=== PATIENT | female | born 1950 | race Hispanic/Latino ===

== ENCOUNTER → 2018-08-01 | Outpatient (CLI) | payer OTHER | END | disposition home or self-care (01) | LOC: RAH 12:22 | PROVIDERS: ATTEND Internal Medicine | DX: R91.1 Solitary pulmonary nodule (principal); K76.0 Fatty (change of) liver, not elsewhere classified | CPT/HCPCS: 71260 ==

== ENCOUNTER → 2019-02-21 | Outpatient (CLI) | payer OTHER ==
[~2019-02-21] MED LIST: IOHEXOL-350 50ML VIAL IV ONE
== END | disposition home or self-care (01) ==
LOC: RAH 08:35
PROVIDERS: ATTEND Internal Medicine
DX: R91.1 Solitary pulmonary nodule (principal); J84.10 Pulmonary fibrosis, unspecified; K80.20 Calculus of gallbladder without cholecystitis without obstruction; M47.815 Spondylosis without myelopathy or radiculopathy, thoracolumbar region
CPT/HCPCS: 71260; Q9967

== ENCOUNTER → 2020-08-09 | Outpatient (CLI) | payer OTHER | END | disposition home or self-care (01) | LOC: RAH 07:31 | PROVIDERS: ATTEND Internal Medicine | DX: K76.0 Fatty (change of) liver, not elsewhere classified (principal) | CPT/HCPCS: 76700 ==

== ENCOUNTER → 2024-10-18 | Outpatient (CLI) | payer OTHER ==
--- NOTE | 2024-10-23 08:49 | HMCSR ---
APPROVED REPORT EXAM: Two-dimensional and M-mode echocardiogram with Doppler and color Doppler. INDICATION ICD: R01.1 Cardiac murmur, unspecified 2D Dimensions RVDd2.5 cmLVEF(%)68.5 (>50%)LVED Vol(simp.)65.0 mL IVSd1.2 (0.7-1.1cm)FS(%)38 %LVES Vol(simp.)22.0 mL LVDd3.6 (3.8-5.6cm)Ao Root(2D)2.7 (2.0-3.7cm)LVEF(%, simp.)66 % PWd1.1 (0.7-1.1cm)LVOT diam1.9 (1.8-2.4cm)LA ESV INDEX (BP)28.88 mL/m2 LVDs2.2 (2.5-4.0cm)IVC diam1.5 cm Aortic Valve AoV Vmax2.8 m/Naomi Peak GR31.0 mmHgLVOT Vmax1.0 m/s AoV VTI0.6 mAo Mean GR16.2 mmHgLVOT VTI0.25 m MARIO (VMAX)1.1 cm2AVA (VTI) 1.1 cm2 Mitral Valve MV E Gxoe131.2 cm/sDECEL Sgyr467 msMV Peak GR13 mmHg MV A Krob068.6 cm/sP 1/2 T86 msMV Mean GR6 mmHg E/A ratio0.8MVA (PHT)2.6 cm2MVA (VTI)1.6 cm2 MR Max PG87 mmHg TDI E/E' Bzqxkt08.1E/E' Nqsllpn68.4 Pulmonary Valve PV Vmax1.4 m/sPV VTI0.34 mPV Mean GR5 mmHg PV Peak GR7.9 mmHg Tricuspid Valve RAP (EST) 3 mmHg Left Ventricle Left ventricular cavity size is normal. There is mild septal wall increased thickness. LVEF is 65-70% . Grade 1 diastolic dysfunction Right Ventricle The right ventricle is normal size. The right ventricular systolic function is normal. Atria The left atrium size is normal. The right atrium size is normal. Aortic Valve Aortic valve is trileaflet. Aortic valve leaflets are sclerotic but open well. Trace aortic regurgita tion. There is no aortic valvular stenosis. Mitral Valve Mitral valve leaflets are mildly calcified. Mitral annular calcification is mild to moderate. Posteri or leaflet is restricted in movement. Mitral regurgitation is trace to mild. Mild mitral stenosis. Ca lculated mitral valve area is 1.6 cm2 with maximum pressure gradient of 13 mmHg and mean pressure gra dient of 6.4 mmHg. Tricuspid Valve The tricuspid valve leaflets appear normal. There is trace tricuspid regurgitation. Pulmonic Valve The pulmonic valve leaflets are thin and pliable; valve motion is normal. Great Vessels The aortic root is normal in size. The IVC is normal in size and collapses >50% with inspiration. Pericardium No pericardial effusion. Conclusion Left ventricular cavity size is normal. There is mild septal wall increased thickness. LVEF is 65-70%. Grade 1 diastolic dysfunction The right ventricle is normal size. The right ventricular systolic function is normal. The left atrium size is normal. The right atrium size is normal. Mitral regurgitation is trace to mild. Mitral valve leaflets are mildly calcified. Mitral annular calcification is mild to moderate. Posterior leaflet is restricted in movement. Mild mitral stenosis. Calculated mitral valve area is 1.6 cm2 with maximum pressure gradient of 13 mm Hg and mean pressure gradient of 6.4 mmHg. No pericardial effusion.
== END | disposition home or self-care (01) ==
LOC: SHCH 13:07
PROVIDERS: ATTEND Student in an Organized Health Care Education/Training Program
DX: I08.0 Rheumatic disorders of both mitral and aortic valves (principal); R01.1 Cardiac murmur, unspecified
CPT/HCPCS: 93306

== ENCOUNTER 2025-03-13 19:36 | Inpatient (IN) | payer OTHER ==
[~2025-03-13] VITALS: Ht 154.9 cm; Wt 74.8 kg
[~2025-03-13 19:36] MED LIST changes: +0.9%NACL 50ML IV SCH; -IOHEXOL-350 50ML VIAL IV ONE
--- NOTE | 2025-03-13 20:24 | EKG ---
[facility] Test Date: 2025-03-13 Test Time: 20:20:03 Pat Name: GAGE FERREIRA Department: [facility] Room: 303 Gender: F [employer] Installer: [id number] Requested By: EDELMIRA MCDONALD Order Number: [id number] Reading MD: Lux Neri Measurements Intervals Aubrey Rate: 97 P: 29 FL: 157 QRS: -11 QRSD: 80 T: -2 QT: 364 QTc: 462 Interpretive Statements Sinus rhythm Inferior infarct, old No previous ECG available for comparison Electronically Signed On 03-16-2025 00:00:40 CDT by Lux Neri Please click the below link to view image of tracing.
[2025-03-13 20:25] LABS: IMMATURE GRANULOCYTE ABSOLUTE 0.18 K/uL (0-1); NUCLEATED RED BLOOD CELLS 0.0 % (0.0-0.19); PLATELET COUNT (AUTO) 178 K/uL (130-400); RED BLOOD CELL COUNT(AUTO) 4.34 MIL/uL (4.00-5.50); RED CELL DISTRIBUTION WIDTH 13.2 % (11.0-15.5); WHITE BLOOD COUNT (AUTO) 19.1 K/uL (4.8-10.8)
[2025-03-13 20:39] LABS: CREATININE 1.1 mg/dL (0.5-1.0); GLOMERULAR FILTR. RATE CALC 52.0 mL/min (>90); GLUCOSE,RANDOM 212.0 mg/dL (70-105); SODIUM SERUM 130.0 mmol/L (136-145); UREA NITROGEN, BLOOD 29.0 mg/dL (7-18)
[2025-03-13] MEDS: 0.9%NACL 1000ML 1,000 ML IV ONE (20:46)
[2025-03-13] MEDS: FAMOTIDINE 20MG VIAL IV ONE (20:46)
[2025-03-13 20:48] LABS: ASPARTATE AMINOTRANSFERASE 22.0 U/L (10-37); CREATINE KINASE, TOTAL 62.0 U/L (21-232); TOTAL PROTEIN, SERUM 7.0 g/dL (6.0-8.3)
--- NOTE | 2025-03-13 21:25 | ERN ---
General Chief Complaint: Multiple Complaints Stated Complaint: NAUSEA. GBW, CHILLS Time Seen by MD: 19:47 Time Seen by Midlevel: 19:47 Source: patient History of Present Illness Initial Comments Patient is a 74-year-old female presenting to the emergency department for evaluation of increased generalized body weakness chills, and nausea. She also reports diffuse abdominal pain. According to family the patient was treated for urinary tract infection several weeks ago. She was seen at [facility] on March 10 and diagnosed with gallstones but ultimately discharged. She follow up with your PCP who referred her to GI but is pending an appointment. Allergies: Coded Allergies: No Known Allergies (Unverified Allergy, Unknown, 03/13/25) Past Medical History Past Medical History: Diabetes-Type II, High Cholesterol, Hypertension, Other Medical History Other: GALLSTONES Past Surgical History: ROS Dictation CONSTITUTIONAL: Negative except for HPI HEAD/FACE: Negative except for HPI EENT: Negative except for HPI RESPIRATORY: Negative except for HPI GASTROINTESTINAL/ABDOMINAL: Negative except for HPI GENITOURINARY: Negative except for HPI MUSCULOSKELETAL: Negative except for HPI INTEGUMENTARY: Negative except for HPI NEUROLOGICAL/PSYCH: Negative except for HPI HEMATOLOGIC/LYMPHATIC: Negative except for HPI All Systems Negative, Except as noted above. 13 point review of systems assessed and all negative except for above. Physical Exam Physical Exam Dictation Vital Signs reviewed General Appearance: Alert, oriented x 3, no acute distress, well developed, nourished. Head and Face: non-traumatic. Eyes: PERRL, pink conjunctivas, eyelid no trauma, anterior chamber with arcus senilis. Ears: Pinnas intact and no signs of trauma or erythema ear canals clear and no discharge TM no erythema Nose: No discharge, no bleeding. Oropharynx: Mouth normal, tongue pink, pharynx clear,no erythema, tonsils no exudates, no abscesses noted, mucous membrane moist Neck: Supple, non-tender, no thyromegaly, no masses, no JVD, no bruits Breast:Deferred Chest:No tenderness, no crepitus, no paradoxical movement, no retractions Lungs:Clear, well-ventilated, symmetric, no rales, no wheezing, no rhonchi, no stridor, good breath sounds bilaterally Heart: Regular rate, regular rhythm, no murmur, no gallops Vascular: no peripheral edema, Abdomen: Soft, positive bowel sounds, nondistended, no guarding, nontender, no rebound, no masses no hepatomegaly, no splenomegaly, no Chavarria's sign, no hernias. Rectal: Deferred Genital: Deferred Neurological: Normal speech, motor function intact, sensory function intact Musculoskeletal: Neck nontender, full range of motion, back nontender, full range of motion, Extremities: nontender, full range of motion Skin: Color pink, dry, no turgor, no rash, no lacerations, no abrasions, no contusions. Lymphatic: Deferred Results Laboratory and Microbiology Lab and Micro Result Laboratory Tests Test 03/13/25 20:16 White Blood Count 19.1 K/uL (4.8-10.8) H Red Blood Count 4.34 MIL/uL (4.00-5.50) Hemoglobin 12.5 g/dL (12.0-16.0) Hematocrit 36.3 % (36-48) Mean Corpuscular Volume 83.6 fL (79-99) Mean Corpuscular Hemoglobin 28.8 pg (27.0-33.0) Mean Corpuscular Hemoglobin Concent 34.4 g/dL (32.0-36.0) Red Cell Distribution Width 13.2 % (11.0-15.5) Platelet Count 178 K/uL (130-400) Mean Platelet Volume 11.0 fL (7.5-10.5) H Immature Granulocyte % (Auto) 0.9 % (0-1) Neutrophils (%) (Auto) 88.9 % (40.0-77.0) H Lymphocytes (%) (Auto) 2.6 % (21.0-51.0) L Monocytes (%) (Auto) 7.4 % (3.0-13.0) Eosinophils (%) (Auto) 0.0 % (0.0-8.0) Basophils (%) (Auto) 0.2 % (0.0-5.0) Neutrophils # (Auto) 17.0 K/uL (1.8-7.7) H Lymphocytes # (Auto) 0.5 K/uL (1.0-4.8) L Monocytes # (Auto) 1.4 K/uL (0.1-1.0) H Eosinophils # (Auto) 0.00 K/uL (0.00-0.70) Basophils # (Auto) 0.03 K/uL (0.00-0.20) Absolute Immature Granulocyte (auto 0.18 K/uL (0-1) Nucleated Red Blood Cells 0.0 % (0.0-0.19) White Cell Morphology Comment See comments Sodium Level 130 mmol/L (136-145) L Potassium Level 3.8 mmol/L (3.5-5.1) Chloride Level 97 mmol/L (101-111) L Carbon Dioxide Level 28 mmol/L (21-32) Blood Urea Nitrogen 29 mg/dL (7-18) H Creatinine 1.1 mg/dL (0.5-1.0) H Glomerular Filtration Rate Calc 52 mL/min (>90) Random Glucose 212 mg/dL (70-105) H Total Calcium 9.1 mg/dL (8.5-10.1) Total Bilirubin 1.6 mg/dL (0.2-1.0) H Direct Bilirubin 0.8 mg/dL (0.0-0.3) H Aspartate Amino Transf (AST/SGOT) 22 U/L (10-37) Alanine Aminotransferase (ALT/SGPT) 20 U/L (12-78) Alkaline Phosphatase 133 U/L (50-136) Total Creatine Kinase 62 U/L (21-232) Troponin I High Sensitivity 17 ng/L (4-50) Total Protein 7.0 g/dL (6.0-8.3) Albumin 2.5 g/dL (3.5-5.0) L Lipase 14 U/L (16-77) L Labs Reviewed?: Yes [facility] MDM: Differential diagnosis: Acute cholecystitis, cholelithiasis, small bowel obstruction. Rationale: Tests considered and ordered secondary to shared decision making include: Previous outside records reviewed: Old ER visits. Risk of complication and/or morbidity or mortality of patient management: None Medications-Per medication reconciliation Need for hospitalization: Patient does not meet criteria for hospitalization. Need for emergency major/minor surgery: No There are no social concerns with this patient. Prescription drug management Prescriptions will include symptomatic care Patient's prior external medical records from other ER visits were reviewed by me as indicated. Prior testing and results from previous visits were reviewed. Prior tests were taken into account with medical decision making and resource utilization, independent historian/historians were used to obtain complete medical history. I independently interpreted the test that were performed, results were reviewed by me and considered findings on radiology if ordered. Medical management and examination interpretation discussions were had by me with other qualified healthcare professionals as indicated for the patient's care.. Discussed and reviewed the diagnostic study results with Kacie CORTEZ who agrees for hospitalization/ ED Course Orders Procedure Category Date Status Time 12 Lead Ekg Tracing- EKG 03/13/25 Complete Technical 20:16 Cbc With Differential LAB 03/13/25 Complete 20:16 Basic Metabolic Panel LAB 03/13/25 Complete 20:16 Creatine Kinase, Total LAB 03/13/25 Complete 20:16 Hepatic Function Panel LAB 03/13/25 Complete 20:16 Lipase LAB 03/13/25 Complete 20:16 Urinalysis Profile LAB 03/13/25 Logged 20:16 Troponin I High LAB 03/13/25 Complete Sensitivity 20:16 Chest 1vw RAD 03/13/25 Resulted 20:16 Ondansetron 4mg Inj PHA 03/13/25 Complete (Zofran 4mg Inj) 20:30 Famotidine 20mg Vial PHA 03/13/25 Complete (Pepcid 20mg Vial) 20:30 0.9%Nacl 1000ml (Ns PHA 03/13/25 Complete 1000ml) 20:30 Ct Abdomen/Pelvis CT 03/13/25 Resulted W/Contrast 21:03 Zosyn 3.375gm+Ns 50ml PHA 03/13/25 Complete (Zosyn 3.375gm+Ns 21:30 Blood Cult ANGELA 03/13/25 In Process 21:26 Iohexol (Omnipaque) PHA 03/13/25 Complete 21:52 Current Medications Medications (Trade) Dose Ordered Sig/Lucretia Route PRN Reason Start Time Stop Time Status Last Admin Dose Admin Famotidine (Pepcid 20mg Vial) 20 mg ONCE ONCE IV 03/13/25 20:30 03/13/25 20:31 DC 03/13/25 20:46 Iohexol (Omnipaque) 75 ml STK-MED ONCE IV 03/13/25 21:52 03/13/25 21:53 DC Ondansetron HCl (zoFRAN 4MG INJ) 4 mg ONCE ONCE IVP 03/13/25 20:30 03/13/25 20:31 DC 03/13/25 20:46 Piperacillin Sod/ Tazobactam Sod (Zosyn 3.375gm+NS 50ml) 3.375 gm ONCE ONCE IV 03/13/25 21:30 03/13/25 21:31 DC 03/13/25 22:22 Sodium Chloride 1,000 ml @ 0 mls/hr ONCE ONCE IV 03/13/25 20:30 03/13/25 20:31 DC 03/13/25 20:46 Vital Signs Date Time Temp Pulse Resp B/P (MAP) Pulse Ox O2 Delivery O2 Flow Rate FiO2 03/13/25 22:49 104 15 130/47 98 Room Air* 0 21 03/13/25 20:00 95 15 114/46 98 Room Air* 0 21 03/13/25 19:38 97.3 94 20 108/47 97 Room Air DX & DISP Disposition: Inpatient Departure Impression: Primary Impression: Acute cholecystitis Condition: Stable Referrals: RUBI MONIQUE M.D. (PCP) EDELMIRA MCDONALD Mar 13, 2025 21:25 LYDIA MARQUEZ Mar 13, 2025 23:35
[2025-03-13] MEDS ORDERED: IOHEXOL-350 75 ML VIAL IV ONE (21:52)
--- NOTE | 2025-03-13 22:07 | HMCIMG ---
EXAM: CR Chest, 1 View. CLINICAL HISTORY: cp COMPARISON: None provided. FINDINGS: LUNGS: The lungs show no infiltrate or other acute finding. PLEURAL SPACES: No evidence of pleural effusion or pneumothorax. MEDIASTINUM: The cardiomediastinal silhouette is within normal limits. BONES: No aggressive appearing osseous lesion seen. IMPRESSION: No acute cardiopulmonary pathology is evident. /[place]
[2025-03-13] MEDS: ZOSYN 3.375GM +NS 50ML IV ONE (22:22)
--- NOTE | 2025-03-13 23:07 | HMCIMG ---
EXAM: CT Abdomen and Pelvis with IV contrast CLINICAL HISTORY: Diffuse abdominal pain. TECHNIQUE: Thin collimated axial CT images of the abdomen and pelvis were obtained with sagittal and coronal reformatted images also submitted. CT scan is done according to ALARA (As Low As Reasonably Achievable). CONTRAST: Omnipaque 350. COMPARISON: None. FINDINGS: Linear and subsegmental atelectasis at the bilateral lung bases. Minimal right pleural effusion. No focal abnormality within the liver, pancreas, spleen, adrenals, or kidneys. Gallbladder is distended with multiple small calculi within the gallbladder lumen with diffuse gallbladder wall thickening and surrounding fat stranding suggesting acute cholecystitis. There is no obvious bowel wall thickening. Bowel loops are normal in caliber without evidence of obstruction or ileus. No acute appendicitis. There is no abnormality within the urinary bladder. There is about 2.2 x 0.6 x 1.2 cm periurethral cyst on the left side. Unremarkable reproductive organs. Abdominal and pelvic vessels are patent. No lymphadenopathy. No free fluid. There is no acute osseous abnormality. Multilevel thoracolumbar spondylosis. Bilateral small inguinal hernia containing fat. IMPRESSIONS: Cholelithiasis with acute cholecystitis. There is about 2.2 x 0.6 x 1.2 cm periurethral cyst on the left side. /[place]
--- NOTE | 2025-03-13 23:34 | HP ---
[facility] HISTORY & PHYSICAL Date Patient Seen: Mar 13, 2025 Time of Visit: 23:33 Supervising Physician: Dr. Damon Beckham Primary Care Physician: RUBI MONIQUE M.D. (PCP) Outpatient Specialists: Inpatient Consults: PROBLEM LIST: Cholelithiasis with acute cholecystitis. 2.2 x 0.6 x 1.2 cm periurethral cyst on the left side Hyperglycemia in a type 2 diabetic Hyperlipidemia Fatty liver Hypertension HPI: Ms. Gamble is a 74-year-old female with a history of DM, HTN, hypercholesteremia, and gallstones who presented to [facility] for evaluation of inc reased generalized body weakness chills, and nausea. She also reports diffuse abdominal pain. According to family the patient was treated for urinary tract infection several weeks ago. She was seen at [facility] on March 10 and diagnosed with gallstones but ultimately discharged. She follow up with your PCP who referred her to GI but is pending an appointment. CT abdomen and pelvis with contrast: Cholelithiasis with acute cholecystitis. There is about 2.2 x 0.6 x 1.2 cm periurethral cyst on the left side. In ED the patient received Zosyn, NS1 L bolus, Pepcid, Zofran. ED provider request patient be admitted with the diagnosis of cholelithiasis with acute cholecystitis. I went to assess the patient at bedside. Patient appeared comfortable breathing was even, unlabored, in no distress. I informed the patient and daughter at bedside labs, diagnostics, and plan of care. They verbalized understanding and are in agreement with the plan. Plan and assessment are listed below. PAST MEDICAL HX: see above PAST SURGICAL HX: SOCIAL HISTORY: No tobacco, ETOH, or illicit drug use Coded Allergies: No Known Allergies (Unverified Allergy, Unknown, 03/13/25) REVIEW OF SYSTEMS: 12 point ROS reviewed with patient. Pertinent positives mentioned above. Otherwise negative. PHYSICAL EXAM: GENERAL: alert, awake oriented x 3 HEENT: EOMI, Sclera non icteric, moist mucosa NECK: Supple, no JVD, trachea midline LUNGS: Clear breath sounds bilaterally. No wheezes HEART: Regular rate and rhythm. Normal S1 and S2, without murmurs ABD: Abdomen soft, generalized abdominal tender. Bowel sounds present EXT: No clubbing cyanosis or edema NEURO: Alert and oriented to x3, follows commands Vital Signs (last 8hr) Date Time Temp Pulse Resp B/P (MAP) Pulse Ox O2 Delivery O2 Flow Rate FiO2 03/13/25 22:49 104 15 130/47 98 Room Air* 0 21 03/13/25 20:00 95 15 114/46 98 Room Air* 0 21 03/13/25 19:38 97.3 94 20 108/47 97 Room Air LABS: Hematology Labs: Test 03/13/25 20:16 Range/Units White Blood Count 19.1 H 4.8-10.8 K/uL Red Blood Count 4.34 4.00-5.50 MIL/uL Hemoglobin 12.5 12.0-16.0 g/dL Hematocrit 36.3 36-48 % Mean Corpuscular Volume 83.6 79-99 fL Mean Corpuscular Hemoglobin 28.8 27.0-33.0 pg Mean Corpuscular Hemoglobin Concent 34.4 32.0-36.0 g/dL Red Cell Distribution Width 13.2 11.0-15.5 % Platelet Count 178 130-400 K/uL Mean Platelet Volume 11.0 H 7.5-10.5 fL Immature Granulocyte % (Auto) 0.9 0-1 % Neutrophils (%) (Auto) 88.9 H 40.0-77.0 % Lymphocytes (%) (Auto) 2.6 L 21.0-51.0 % Monocytes (%) (Auto) 7.4 3.0-13.0 % Eosinophils (%) (Auto) 0.0 0.0-8.0 % Basophils (%) (Auto) 0.2 0.0-5.0 % Neutrophils # (Auto) 17.0 H 1.8-7.7 K/uL Lymphocytes # (Auto) 0.5 L 1.0-4.8 K/uL Monocytes # (Auto) 1.4 H 0.1-1.0 K/uL Eosinophils # (Auto) 0.00 0.00-0.70 K/uL Basophils # (Auto) 0.03 0.00-0.20 K/uL Absolute Immature Granulocyte (auto 0.18 0-1 K/uL Nucleated Red Blood Cells 0.0 0.0-0.19 % White Cell Morphology Comment See comments Chemistry Labs: Test 03/13/25 20:16 Range/Units Sodium Level 130 L 136-145 mmol/L Potassium Level 3.8 3.5-5.1 mmol/L Chloride Level 97 L 101-111 mmol/L Carbon Dioxide Level 28 21-32 mmol/L Blood Urea Nitrogen 29 H 7-18 mg/dL Creatinine 1.1 H 0.5-1.0 mg/dL Glomerular Filtration Rate Calc 52 >90 mL/min Random Glucose 212 H 70-105 mg/dL Total Calcium 9.1 8.5-10.1 mg/dL Total Bilirubin 1.6 H 0.2-1.0 mg/dL Direct Bilirubin 0.8 H 0.0-0.3 mg/dL Aspartate Amino Transf (AST/SGOT) 22 10-37 U/L Alanine Aminotransferase (ALT/SGPT) 20 12-78 U/L Alkaline Phosphatase 133 50-136 U/L Total Creatine Kinase 62 21-232 U/L Troponin I High Sensitivity 17 4-50 ng/L Total Protein 7.0 6.0-8.3 g/dL Albumin 2.5 L 3.5-5.0 g/dL Lipase 14 L 16-77 U/L DIAGNOSTICS / RADIOLOGY RESULTS: [ ] PLAN -Admit to medical floor. -P.r.n. medications for: Pain management, fever, nausea, vomiting, constipation, hypertension. -Consult general surgeon for evaluation of cholelithiasis with acute cholecystitis. -continue Zosyn 3.375 IV q.8 hours. -NPO after midnight. -NS at 75 mL an hour. -Blood pressure checks every 4 hours and as needed. -Reconcile home medications once available. -Glucometer checks before meals and at bedtime with insulin regular sliding scale. -Blood pressure checks every 4 hours and as needed. - Monitor renal and liver function. -Monitor electrolytes and treat accordingly PRN -AM labs. -GI and DVT prophylaxis -Further plan/orders per hospitalization course. NEURO: Minimize central acting medications as possible. Maintain fall precautions, adequate lighting during the day PULMONARY: Supplemental 02 as needed. Maintain aspiration precautions at all times CARDIOVASCULAR: Follow hemodynamics. Vital signs per facility protocol GI & NUTRITION: Continue with nutritional support. Continue stool softeners and laxatives as needed. KIDNEYS & ELECTROLYTES: Strict monitoring of intake, output and overall fluid balance. Avoid nephrotoxic medications to the extent possible. Medications to be dosed according to renal function. Monitor electrolytes and replace as needed ENDOCRINE: Maintain blood glucose between 100-180 at all times. Hypoglycemia protocol in place INFECTIOUS DISEASE: Trend temperature, WBC and procalcitonin level Follow cultures, deescalate antibiotics as soon as possible. Panculture if new onset fever ONCOLOGY/HEMATOLOGY/COAGULATION: Monitor for s/s of bleeding Monitor hemoglobin, coagulation studies as needed SKIN: Pressure ulcer prevention per facility protocol Specialty mattress ORTHO/REHAB: Continue PT/OT Prophylaxis: Continue GI and DVT prophylaxis Code Status: Full Resuscitation Disposition: TBD ATTESTATION BY PHYSICIAN I attest that I reviewed and discussed the case with the Physician Caustic Plant Worker as well as agree with the Physician Caustic Plant Worker's findings, plans of care, and docu mentation above. Damon Vidal MD, [facility] Mar 13, 2025 23:34
[2025-03-14 01:11] LABS: APPEARANCE,URINE CLOUDY (CLEAR); GLUCOSE, URINE (UA) 200 mg/dL (NEGATIVE); LEUKOCYTE ESTERASE ,URINE 500 Leu/uL (NEGATIVE); NITRATE,URINE NEGATIVE (NEGATIVE); OCCULT BLOOD,URINE MODERATE (NEGATIVE)
[2025-03-14 01:13] LABS: ADD UA MICROSCOPIC YES
[2025-03-14 01:14] LABS: NON-SQUAMOUS EPITHELIAL CELL 3 /HPF (0-2); SQUAMOUS EPITHELIAL CELL,UR MANY /HPF (0-2)
[2025-03-14] MEDS ORDERED: PROMETHAZINE HCL 6.25 MG/5 ML PO PRN (01:30)
[2025-03-14] MEDS: 0.9%NACL 1000ML 1,000 ML IV SCH (01:51)
[2025-03-14 04:00] VITALS: BP_SYST 140; BP_SYST 147; BP_DIAS 61; BP_DIAS 65; PULSE 77; PULSE 99; RESP 16; RESP 24; TEMP 98.2; TEMP 98.4
[2025-03-14] MEDS ORDERED: GLUCAGON 1MG KIT 1 MG ML IM PRN (04:30)
[2025-03-14] MEDS ORDERED: MAGNESIUM 2GM PREMIX 50ML 50 ML IV PRN (04:30)
[2025-03-14] MEDS ORDERED: DEXTROSE 50%-WATER 50 ML DISP.SYRIN IV PRN (04:30)
[2025-03-14] MEDS ORDERED: LACTULOSE 20 GM/30 ML UDCUP PO PRN (04:30)
[2025-03-14] MEDS: ZOSYN 3.375GM +NS 50ML IVPB SCH (05:23)
[2025-03-14 08:00] VITALS: BP 134/63; PULSE 96; RESP 18; TEMP 98.6
--- NOTE | 2025-03-14 09:49 | NUR ---
CONSULT WAS CALLED IN THROUGH ANSWERING SERVICE BY KIANA CHIU THIS AM . PENDING CALL BACK FROM
[2025-03-14 11:28] LABS: ASPARTATE AMINOTRANSFERASE 26.0 U/L (10-37); CREATININE 0.9 mg/dL (0.5-1.0); GLOMERULAR FILTR. RATE CALC 66.0 mL/min (>90); GLUCOSE,RANDOM 186.0 mg/dL (70-105); SODIUM SERUM 134.0 mmol/L (136-145); TOTAL PROTEIN, SERUM 6.4 g/dL (6.0-8.3); UREA NITROGEN, BLOOD 21.0 mg/dL (7-18)
[2025-03-14 12:00] VITALS: BP 146/71; PULSE 94; RESP 18; TEMP 98.3
--- NOTE | 2025-03-14 13:55 | CONS ---
GENERAL SURGERY CONSULTATION NOTE DATE OF CONSULTATION: Mar 14, 2025 TIME OF CONSULTATION: 13:51 CONSULTING SERVICE: Reno Nunez MD REQUESTING PHYSICAIN: [ ] REASON FOR CONSULTATION: [ ] HISTORY OF PRESENT ILLNESS: [74F started with abd pain about 1 week ago went to [facility] and was told had gallstones and sent home. for the last week has been unable to tolerate PO diet because of nausea. abd pain getting worse. it is epigastric radiates to RUQ and R shoulder. PAST MEDICAL HISTORY: [HTN, DN, fatty liver, HLD PAST SURGICAL HISTORY: c section x3 FAMILY HISTORY: [ ] SOCIAL HISTORY: denies smoking or drugs Current Medications Medications (Trade) Dose Ordered Sig/Lucretia Route Start Time Stop Time Status Last Admin Dose Admin Insulin Human Regular (humuLIN R 100 UNIT/ML 3ML) INSULIN SLIDING SCAL... ACHS SQ 03/14/25 07:30 04/13/25 07:29 Piperacillin Sod/ Tazobactam Sod (Zosyn 3.375gm+NS 50ml) 3.375 gm Q8H IVPB 03/14/25 05:00 03/24/25 04:59 03/14/25 12:37 3.375 GM Sodium Chloride 1,000 ml @ 75 mls/hr [id number] IV 03/14/25 01:30 04/13/25 01:29 03/14/25 01:51 75 MLS/HR Sodium Chloride (NS 50ml) 50 ml AD IV 03/13/25 05:00 03/14/25 07:19 DC Allergies: Coded Allergies: No Known Allergies (Unverified Allergy, Unknown, 03/13/25) REVIEW OF SYSTEMS: SLURRY TANK TENDER: [Denies headaches or blurring of vision.] RESP: No SOB CVS: no CP GI: per HPI All other systems are reviewed and essentially negative pertinent positives in HPI. PHYSICAL EXAMINATION: GENERAL: No distress HEAD: normocephalic EYES: no icterus NECK: trachea midline LUNGS: no distress HEART: [Regular rate and rhythm. ABD: [Bowel sounds present,soft, non tender, distended EXT: [ Warm , moves all SKIN: [ No jaundice NEURO: [ Awake Alert and oriented x3.] Vital Signs (last 8hr) Date Time Temp Pulse Resp B/P (MAP) Pulse Ox O2 Delivery O2 Flow Rate FiO2 03/14/25 12:00 98.2 94 18 146/71 97 Room Air 03/14/25 08:00 98.6 96 18 134/63 96 Room Air LABORATORY: [ ] Hematology Labs: Test 03/13/25 20:16 Range/Units White Blood Count 19.1 H 4.8-10.8 K/uL Red Blood Count 4.34 4.00-5.50 MIL/uL Hemoglobin 12.5 12.0-16.0 g/dL Hematocrit 36.3 36-48 % Mean Corpuscular Volume 83.6 79-99 fL Mean Corpuscular Hemoglobin 28.8 27.0-33.0 pg Mean Corpuscular Hemoglobin Concent 34.4 32.0-36.0 g/dL Red Cell Distribution Width 13.2 11.0-15.5 % Platelet Count 178 130-400 K/uL Mean Platelet Volume 11.0 H 7.5-10.5 fL Immature Granulocyte % (Auto) 0.9 0-1 % Neutrophils (%) (Auto) 88.9 H 40.0-77.0 % Lymphocytes (%) (Auto) 2.6 L 21.0-51.0 % Monocytes (%) (Auto) 7.4 3.0-13.0 % Eosinophils (%) (Auto) 0.0 0.0-8.0 % Basophils (%) (Auto) 0.2 0.0-5.0 % Neutrophils # (Auto) 17.0 H 1.8-7.7 K/uL Lymphocytes # (Auto) 0.5 L 1.0-4.8 K/uL Monocytes # (Auto) 1.4 H 0.1-1.0 K/uL Eosinophils # (Auto) 0.00 0.00-0.70 K/uL Basophils # (Auto) 0.03 0.00-0.20 K/uL Absolute Immature Granulocyte (auto 0.18 0-1 K/uL Nucleated Red Blood Cells 0.0 0.0-0.19 % White Cell Morphology Comment See comments Chemistry Labs: Test 03/14/25 11:21 03/14/25 11:01 03/13/25 20:16 Range/Units Whole Blood Glucose 174 H 70-110 MG/DL Sodium Level 134 L 136-145 mmol/L Potassium Level 3.8 3.5-5.1 mmol/L Chloride Level 101 101-111 mmol/L Carbon Dioxide Level 24 21-32 mmol/L Blood Urea Nitrogen 21 H 7-18 mg/dL Creatinine 0.9 0.5-1.0 mg/dL Glomerular Filtration Rate Calc 66 >90 mL/min Random Glucose 186 H 70-105 mg/dL Total Calcium 8.3 L 8.5-10.1 mg/dL Total Bilirubin 1.7 H 0.2-1.0 mg/dL Aspartate Amino Transf (AST/SGOT) 26 10-37 U/L Alanine Aminotransferase (ALT/SGPT) 23 12-78 U/L Alkaline Phosphatase 133 50-136 U/L Total Protein 6.4 6.0-8.3 g/dL Albumin 2.1 L 3.5-5.0 g/dL Direct Bilirubin 0.8 H 0.0-0.3 mg/dL Total Creatine Kinase 62 21-232 U/L Troponin I High Sensitivity 17 4-50 ng/L Lipase 14 L 16-77 U/L DIAGNOSTICS / RADIOLOGY: [Copy/Paste Echos/Imaging Report here] ASSESSMENT: acute cholecystitis on images. elevated Bilirubin PLAN: NPO/IVF/IV ANTIOBIOTICS Schedule for MRCP to eval for choledocholithiasis. if this is negative we will plan for cholecystectomy if positive will need ERCP TIANA BACA MD Mar 14, 2025 13:55
--- NOTE | 2025-03-14 13:55 | NUR ---
DCP: INITIAL ASSESSMENT Patient lives with spouse, Fortino Gamble. She has no home services. Patient has BPM, glucometer (insulin), shower chair, cane, and rollator at home. Patient is able to complete ADLs independently but does not drive. Family helps with transportation. PCP is Dr. Ngoc Gray. Pharmacy is [facility] in [place]. Patient voiced no safety concerns regarding returning home and states she has no difficulty with housing or buying food. DCP is home. Addendum: 03/14/25 at 1359 by CAMPOS FAROOQ SS Amended: Links added.
--- NOTE | 2025-03-14 14:58 | PN ---
[facility] PROGRESS NOTE Date Patient Seen: Mar 14, 2025 Time of Visit: 14:53 Supervising Physician: Dr Beckham Primary Care Physician: RUBI MONIQUE M.D. (PCP) Outpatient Specialists: Inpatient Consults: PROBLEM LIST: Cholelithiasis with acute cholecystitis. Hyperglycemia in a type 2 diabetic Hyperlipidemia Fatty liver Hypertension INTERVAL HISTORY: Patient was seen and examined, she is resting in bed, daughter at bedside. She reports continued right upper quadrant pain. No acute events overnight. Afebrile NPO Vital signs are stable Plan: Pending evaluation by General surgery Antibiotics, following cultures, Sliding-scale insulin, hemoglobin A1c Currently NPO Telemetry REVIEW OF SYSTEMS: 12 point ROS reviewed with patient. Pertinent positives mentioned above. Otherwise negative. PHYSICAL EXAM: GENERAL: alert, awake oriented x 3 HEENT: EOMI, Sclera non icteric, moist mucosa NECK: Supple, no JVD, trachea midline LUNGS: Clear breath sounds bilaterally. No wheezes HEART: Regular rate and rhythm. Normal S1 and S2, without murmurs ABD: Abdomen soft, generalized abdominal tender. Bowel sounds present EXT: No clubbing cyanosis or edema NEURO: Alert and oriented to x3, follows commands Vital Signs (last 8hr) Date Time Temp Pulse Resp B/P (MAP) Pulse Ox O2 Delivery O2 Flow Rate FiO2 03/14/25 12:00 98.2 94 18 146/71 97 Room Air 03/14/25 08:00 98.6 96 18 134/63 96 Room Air LABS: Hematology Labs: Test 03/13/25 20:16 Range/Units White Blood Count 19.1 H 4.8-10.8 K/uL Red Blood Count 4.34 4.00-5.50 MIL/uL Hemoglobin 12.5 12.0-16.0 g/dL Hematocrit 36.3 36-48 % Mean Corpuscular Volume 83.6 79-99 fL Mean Corpuscular Hemoglobin 28.8 27.0-33.0 pg Mean Corpuscular Hemoglobin Concent 34.4 32.0-36.0 g/dL Red Cell Distribution Width 13.2 11.0-15.5 % Platelet Count 178 130-400 K/uL Mean Platelet Volume 11.0 H 7.5-10.5 fL Immature Granulocyte % (Auto) 0.9 0-1 % Neutrophils (%) (Auto) 88.9 H 40.0-77.0 % Lymphocytes (%) (Auto) 2.6 L 21.0-51.0 % Monocytes (%) (Auto) 7.4 3.0-13.0 % Eosinophils (%) (Auto) 0.0 0.0-8.0 % Basophils (%) (Auto) 0.2 0.0-5.0 % Neutrophils # (Auto) 17.0 H 1.8-7.7 K/uL Lymphocytes # (Auto) 0.5 L 1.0-4.8 K/uL Monocytes # (Auto) 1.4 H 0.1-1.0 K/uL Eosinophils # (Auto) 0.00 0.00-0.70 K/uL Basophils # (Auto) 0.03 0.00-0.20 K/uL Absolute Immature Granulocyte (auto 0.18 0-1 K/uL Nucleated Red Blood Cells 0.0 0.0-0.19 % White Cell Morphology Comment See comments Chemistry Labs: Test 03/14/25 11:21 03/14/25 11:01 03/13/25 20:16 Range/Units Whole Blood Glucose 174 H 70-110 MG/DL Sodium Level 134 L 136-145 mmol/L Potassium Level 3.8 3.5-5.1 mmol/L Chloride Level 101 101-111 mmol/L Carbon Dioxide Level 24 21-32 mmol/L Blood Urea Nitrogen 21 H 7-18 mg/dL Creatinine 0.9 0.5-1.0 mg/dL Glomerular Filtration Rate Calc 66 >90 mL/min Random Glucose 186 H 70-105 mg/dL Total Calcium 8.3 L 8.5-10.1 mg/dL Total Bilirubin 1.7 H 0.2-1.0 mg/dL Aspartate Amino Transf (AST/SGOT) 26 10-37 U/L Alanine Aminotransferase (ALT/SGPT) 23 12-78 U/L Alkaline Phosphatase 133 50-136 U/L Total Protein 6.4 6.0-8.3 g/dL Albumin 2.1 L 3.5-5.0 g/dL Direct Bilirubin 0.8 H 0.0-0.3 mg/dL Total Creatine Kinase 62 21-232 U/L Troponin I High Sensitivity 17 4-50 ng/L Lipase 14 L 16-77 U/L DIAGNOSTICS / RADIOLOGY RESULTS: [ ] PLAN NEURO: Minimize central acting medications as possible. Maintain fall precautions, adequate lighting during the day PULMONARY: Supplemental 02 as needed. Maintain aspiration precautions at all times CARDIOVASCULAR: Follow hemodynamics. Vital signs per facility protocol GI & NUTRITION: Continue with nutritional support. Continue stool softeners and laxatives as needed. KIDNEYS & ELECTROLYTES: Strict monitoring of intake, output and overall fluid balance. Avoid nephrotoxic medications to the extent possible. Medications to be dosed according to renal function. Monitor electrolytes and replace as needed ENDOCRINE: Maintain blood glucose between 100-180 at all times. Hypoglycemia protocol in place INFECTIOUS DISEASE: Trend temperature, WBC and procalcitonin level Follow cultures, deescalate antibiotics as soon as possible. Panculture if new onset fever ONCOLOGY/HEMATOLOGY/COAGULATION: Monitor for s/s of bleeding Monitor hemoglobin, coagulation studies as needed SKIN: Pressure ulcer prevention per facility protocol Specialty mattress ORTHO/REHAB: Continue PT/OT Prophylaxis: Continue GI and DVT prophylaxis Code Status: Full Resuscitation Disposition: SHELLY ROWELL Mar 14, 2025 14:58
[2025-03-14] MEDS ORDERED: GADOTERATE MEGLUMINE 10 MMOL/20 ML VIAL IV ONE (15:38)
[2025-03-14 16:18] VITALS: BP 115/52; PULSE 87; RESP 18; TEMP 97.9
[2025-03-14 20:00] VITALS: BP 115/52; PULSE 102; RESP 20; TEMP 98.2; O2SAT 98
[2025-03-15] VITALS (7 sets, daily range): BP systolic 119–148; BP diastolic 56–66; PULSE 70–94; RESP 18–20; TEMP 97.8–98.6; O2SAT 97
[2025-03-15 04:46] LABS: IMMATURE GRANULOCYTE ABSOLUTE 0.10 K/uL (0-1); NUCLEATED RED BLOOD CELLS 0.0 % (0.0-0.19); PLATELET COUNT (AUTO) 151 K/uL (130-400); RED BLOOD CELL COUNT(AUTO) 4.07 MIL/uL (4.00-5.50); RED CELL DISTRIBUTION WIDTH 13.7 % (11.0-15.5); WHITE BLOOD COUNT (AUTO) 14.2 K/uL (4.8-10.8)
[2025-03-15 05:21] LABS: CREATININE 1.0 mg/dL (0.5-1.0); GLOMERULAR FILTR. RATE CALC 58.0 mL/min (>90); GLUCOSE,RANDOM 170.0 mg/dL (70-105); SODIUM SERUM 134.0 mmol/L (136-145); UREA NITROGEN, BLOOD 30.0 mg/dL (7-18)
[2025-03-15 05:23] LABS: PHOSPHORUS 3.1 mg/dL (2.5-4.9)
--- NOTE | 2025-03-15 07:12 | NUR ---
MRCP result notification Provider, Dr. Villatoro, contacted with results of MRCP. Acknowledged, surgery scheduled for tomorrow. Addendum: 03/15/25 at 2018 by ALICE GILMORE RN RN Provider notification was at 1912, not 0712. -MARTIN
--- NOTE | 2025-03-15 12:14 | PN ---
[facility] PROGRESS NOTE Date Patient Seen: Mar 15, 2025 Time of Visit: 12:13 Supervising Physician: Dr Beckham Primary Care Physician: RUBI MONIQUE M.D. (PCP) Outpatient Specialists: Inpatient Consults: PROBLEM LIST: Cholelithiasis with acute cholecystitis. Hyperglycemia in a type 2 diabetic Hyperlipidemia Fatty liver Hypertension INTERVAL HISTORY: Patient seen and examined, she is resting comfortably in bed, she has multiple family members at bedside. She reports feeling hungry but denies any abdominal complaints. No acute events overnight. Patient went for MRCP this morning, pending results. Vital signs are stable. Afebrile. NPO. Plan: Patient remains NPO, follow surgical recommendations If MRCP is negative we will go for cholecystectomy if positive ERCP REVIEW OF SYSTEMS: 12 point ROS reviewed with patient. Pertinent positives mentioned above. Otherwise negative. PHYSICAL EXAM: GENERAL: alert, awake oriented x 3 HEENT: EOMI, Sclera non icteric, moist mucosa NECK: Supple, no JVD, trachea midline LUNGS: Clear breath sounds bilaterally. No wheezes HEART: Regular rate and rhythm. Normal S1 and S2, without murmurs ABD: Abdomen soft, generalized abdominal tender. Bowel sounds present EXT: No clubbing cyanosis or edema NEURO: Alert and oriented to x3, follows commands Vital Signs (last 8hr) Date Time Temp Pulse Resp B/P (MAP) Pulse Ox O2 Delivery O2 Flow Rate FiO2 03/15/25 11:46 98.1 89 18 143/63 99 Room Air 03/15/25 08:00 97.9 70 18 148/66 99 Room Air 03/15/25 08:00 97.9 86 18 119/56 97 03/15/25 08:00 97 Room Air* 0 21 LABS: Hematology Labs: Test 03/15/25 04:15 03/13/25 20:16 Range/Units White Blood Count 14.2 H 4.8-10.8 K/uL Red Blood Count 4.07 4.00-5.50 MIL/uL Hemoglobin 11.8 L 12.0-16.0 g/dL Hematocrit 35.0 L 36-48 % Mean Corpuscular Volume 86.0 79-99 fL Mean Corpuscular Hemoglobin 29.0 27.0-33.0 pg Mean Corpuscular Hemoglobin Concent 33.7 32.0-36.0 g/dL Red Cell Distribution Width 13.7 11.0-15.5 % Platelet Count 151 130-400 K/uL Mean Platelet Volume 11.2 H 7.5-10.5 fL Immature Granulocyte % (Auto) 0.7 0-1 % Neutrophils (%) (Auto) 93.0 H 40.0-77.0 % Lymphocytes (%) (Auto) 2.9 L 21.0-51.0 % Monocytes (%) (Auto) 3.3 3.0-13.0 % Eosinophils (%) (Auto) 0.0 0.0-8.0 % Basophils (%) (Auto) 0.1 0.0-5.0 % Neutrophils # (Auto) 13.2 H 1.8-7.7 K/uL Lymphocytes # (Auto) 0.4 L 1.0-4.8 K/uL Monocytes # (Auto) 0.5 0.1-1.0 K/uL Eosinophils # (Auto) 0.00 0.00-0.70 K/uL Basophils # (Auto) 0.02 0.00-0.20 K/uL Absolute Immature Granulocyte (auto 0.10 0-1 K/uL Nucleated Red Blood Cells 0.0 0.0-0.19 % White Cell Morphology Comment See comments Chemistry Labs: Test 03/15/25 11:14 03/15/25 04:15 03/14/25 11:01 03/13/25 20:16 Range/Units Whole Blood Glucose 162 H 70-110 MG/DL Sodium Level 134 L 136-145 mmol/L Potassium Level 3.6 3.5-5.1 mmol/L Chloride Level 102 101-111 mmol/L Carbon Dioxide Level 21 21-32 mmol/L Blood Urea Nitrogen 30 H 7-18 mg/dL Creatinine 1.0 0.5-1.0 mg/dL Glomerular Filtration Rate Calc 58 >90 mL/min Random Glucose 170 H 70-105 mg/dL Total Calcium 8.0 L 8.5-10.1 mg/dL Phosphorus Level 3.1 2.5-4.9 mg/dL Magnesium Level 2.20 1.80-2.40 mg/dL Procalcitonin 1.35 H 0.05-0.5 ng/mL Total Bilirubin 1.7 H 0.2-1.0 mg/dL Aspartate Amino Transf (AST/SGOT) 26 10-37 U/L Alanine Aminotransferase (ALT/SGPT) 23 12-78 U/L Alkaline Phosphatase 133 50-136 U/L Total Protein 6.4 6.0-8.3 g/dL Albumin 2.1 L 3.5-5.0 g/dL Direct Bilirubin 0.8 H 0.0-0.3 mg/dL Total Creatine Kinase 62 21-232 U/L Troponin I High Sensitivity 17 4-50 ng/L Lipase 14 L 16-77 U/L DIAGNOSTICS / RADIOLOGY RESULTS: [ ] PLAN NEURO: Minimize central acting medications as possible. Maintain fall precautions, adequate lighting during the day PULMONARY: Supplemental 02 as needed. Maintain aspiration precautions at all times CARDIOVASCULAR: Follow hemodynamics. Vital signs per facility protocol GI & NUTRITION: Continue with nutritional support. Continue stool softeners and laxatives as needed. KIDNEYS & ELECTROLYTES: Strict monitoring of intake, output and overall fluid balance. Avoid nephrotoxic medications to the extent possible. Medications to be dosed according to renal function. Monitor electrolytes and replace as needed ENDOCRINE: Maintain blood glucose between 100-180 at all times. Hypoglycemia protocol in place INFECTIOUS DISEASE: Trend temperature, WBC and procalcitonin level Follow cultures, deescalate antibiotics as soon as possible. Panculture if new onset fever ONCOLOGY/HEMATOLOGY/COAGULATION: Monitor for s/s of bleeding Monitor hemoglobin, coagulation studies as needed SKIN: Pressure ulcer prevention per facility protocol Specialty mattress ORTHO/REHAB: Continue PT/OT Prophylaxis: Continue GI and DVT prophylaxis Code Status: Full Resuscitation Disposition: SHELLY ROWELL Mar 15, 2025 12:14
--- NOTE | 2025-03-15 16:51 | PN ---
74-year-old female that has been NPO except for drank some water. Reports pain is gone. No nausea no vomiting. MRCP was done yesterday but still pending. Vital signs stable Patient alert and oriented x3 No respiratory distress Cardiovascular regular rhythm Abdomen is soft, not distended, cutter tender to palpation of right Upper quadrant Assessment and plan We need to have the results of the MRCP. If this is negative for choledocholithiasis I can proceed with surgery tomorrow for cholecystectomy. If it is positive we will need to consult GI for ERCP. Okay for patient to have clear liquids and NPO after midnight Vitals/Labs Vital Signs Date Time Temp Pulse Resp B/P (MAP) Pulse Ox O2 Delivery O2 Flow Rate FiO2 03/15/25 15:42 98.6 89 18 138/60 98 Room Air 03/15/25 08:00 0 21 Laboratory Tests 03/15/25 04:15 Medications Current Medications Ondansetron HCl 4 mg ONCE ONCE IVP Last administered on 03/13/25at 20:46; Start 03/13/25 at 20:30; Stop 03/13/25 at 20:31; Status DC Famotidine 20 mg ONCE ONCE IV Last administered on 03/13/25at 20:46; Start 03/13/25 at 20:30; Stop 03/13/25 at 20:31; Status DC Sodium Chloride 1,000 ml @ 0 mls/hr ONCE ONCE IV Last administered on 03/13/25at 20:46; Start 03/13/25 at 20:30; Stop 03/13/25 at 20:31; Status DC Piperacillin Sod/ Tazobactam Sod 3.375 gm ONCE ONCE IV Last administered on 03/13/25at 22:22; Start 03/13/25 at 21:30; Stop 03/13/25 at 21:31; Status DC Iohexol 75 ml STK-MED ONCE IV; Start 03/13/25 at 21:52; Stop 03/13/25 at 21:53; Status DC Ketorolac Tromethamine 30 mg Q6H PRN IM Last administered on 03/14/25at 12:39; Start 03/14/25 at 00:00; Stop 03/14/25 at 13:12; Status DC Hydromorphone HCl 0.5 mg Q4H PRN IVP Last administered on 03/14/25at 08:50; Start 03/14/25 at 00:00; Stop 03/19/25 at 00:00 Piperacillin Sod/ Tazobactam Sod 3.375 gm Q8H IVPB Last administered on 03/15/25at 04:18; Start 03/14/25 at 05:00; Stop 03/24/25 at 04:59 Sodium Chloride 50 ml AD IV; Start 03/13/25 at 05:00; Stop 03/14/25 at 07:19; Status DC Promethazine HCl 12.5 mg Q6H PRN PO; Start 03/14/25 at 01:30; Stop 04/13/25 at 01:29 Sodium Chloride 1,000 ml @ 75 mls/hr [id number] IV Last administered on 03/15/25at 04:18; Start 03/14/25 at 01:30; Stop 04/13/25 at 01:29 Ondansetron HCl 4 mg Q6H PRN IVP Last administered on 03/15/25at 09:47; Start 03/14/25 at 01:30; Stop 04/13/25 at 01:29 Acetaminophen 650 mg Q6H PRN PO; Start 03/14/25 at 04:30; Stop 04/13/25 at 04:29 Acetaminophen 650 mg Q6H PRN RC; Start 03/14/25 at 04:30; Stop 04/13/25 at 04:29 Lactulose 20 gm Q6H PRN PO; Start 03/14/25 at 04:30; Stop 04/13/25 at 04:29 Docusate Sodium 100 mg BID PRN PO; Start 03/14/25 at 04:30; Stop 04/13/25 at 04:29 Temazepam 15 mg HS PRN PO; Start 03/14/25 at 04:30; Stop 04/13/25 at 04:29 Labetalol HCl 10 mg Q2H PRN IV; Start 03/14/25 at 04:30; Stop 04/13/25 at 04:29 Insulin Human Regular INSULIN SLIDING SCAL... ACHS SQ; Start 03/14/25 at 07:30; Stop 04/13/25 at 07:29 Dextrose 50 ml AD PRN IV; Start 03/14/25 at 04:30; Stop 04/13/25 at 04:29 Glucagon 1 mg AD PRN IM; Start 03/14/25 at 04:30; Stop 04/13/25 at 04:29 Magnesium Sulfate 50 ml @ 0 mls/hr PROTOCOL PRN IV; Start 03/14/25 at 04:30; Stop 04/13/25 at 04:29 Potassium Chloride 100 ml @ 100 mls/hr AD PRN IV Last administered on 03/15/25at 09:23; Start 03/14/25 at 04:30; Stop 04/13/25 at 04:29 Ketorolac Tromethamine 15 mg Q6H PRN IV; Start 03/14/25 at 18:00; Stop 03/19/25 at 17:59 Gadoterate Meglumine 10 mmol STK-MED ONCE IV; Start 03/14/25 at 15:38; Stop 03/14/25 at 15:38; Status DC TIANA BACA MD Mar 15, 2025 16:51
--- NOTE | 2025-03-15 18:52 | HMCIMG ---
HISTORY: Rule out choledocholithiasis TECHNIQUE: MRI of the abdomen with and without contrast using MRCP technique COMPARISON: CT abdomen and pelvis 03/13/2025 FINDINGS: LIVER: Normal contour. Small volume perihepatic ascites. Hyperemia and inflammatory change within the gallbladder fossa compatible with reactive inflammation. SPLEEN: Unremarkable. KIDNEYS: Unremarkable. No hydronephrosis. ADRENAL GLANDS: Unremarkable. PANCREAS: Unremarkable. GALLBLADDER: Hydropic with gallbladder wall discontinuity suggesting gallbladder perforation. Numerous choleliths are present. No choledocholithiasis. BOWEL: The bowel is unremarkable. No acute abnormality. ADENOPATHY: No lymphadenopathy. VASCULATURE: The vasculature is patent. ASCITES: Small volume perihepatic and perisplenic ascites. OSSEOUS STRUCTURES: Within normal limits. SOFT TISSUES: Unremarkable. IMPRESSION: Findings compatible with acute cholecystitis with gallbladder perforation. No choledocholithiasis. /[place]
[2025-03-16] VITALS (24 sets, daily range): BP systolic 101–157; BP diastolic 35–72; PULSE 73–84; RESP 16–20; TEMP 97.3–98.5; O2SAT 96–97
[2025-03-16 06:19] LABS: ASPARTATE AMINOTRANSFERASE 57.0 U/L (10-37); CREATININE 1.1 mg/dL (0.5-1.0); GLOMERULAR FILTR. RATE CALC 52.0 mL/min (>90); GLUCOSE,RANDOM 224.0 mg/dL (70-105); SODIUM SERUM 133.0 mmol/L (136-145); TOTAL PROTEIN, SERUM 5.8 g/dL (6.0-8.3); UREA NITROGEN, BLOOD 29.0 mg/dL (7-18)
--- NOTE | 2025-03-16 11:05 | PN ---
[facility] PROGRESS NOTE Date Patient Seen: Mar 16, 2025 Time of Visit: 11:04 Supervising Physician: Dr Maldonado Primary Care Physician: RUBI MONIQUE M.D. (PCP) Outpatient Specialists: Inpatient Consults: PROBLEM LIST: Cholelithiasis with acute cholecystitis. Hyperglycemia in a type 2 diabetic Hyperlipidemia Fatty liver Hypertension INTERVAL HISTORY: Patient was seen and examined, all labs and imaging have been reviewed, patient reporting continued right upper quadrant abdominal pain. She is NPO. Her vital signs are stable. She is afebrile MRCP positive for gallbladder perforation . Plan: Pending surgical recs but likely to the OR. We will follow patient postprocedure Telemetry A.m. labs REVIEW OF SYSTEMS: 12 point ROS reviewed with patient. Pertinent positives mentioned above. Otherwise negative. PHYSICAL EXAM: GENERAL: alert, awake oriented x 3 HEENT: EOMI, Sclera non icteric, moist mucosa NECK: Supple, no JVD, trachea midline LUNGS: Clear breath sounds bilaterally. No wheezes HEART: Regular rate and rhythm. Normal S1 and S2, without murmurs ABD: Abdomen soft, generalized abdominal tender. Bowel sounds present EXT: No clubbing cyanosis or edema NEURO: Alert and oriented to x3, follows commands Vital Signs (last 8hr) Date Time Temp Pulse Resp B/P (MAP) Pulse Ox O2 Delivery O2 Flow Rate FiO2 03/16/25 08:00 98.2 83 17 154/62 96 Room Air 03/16/25 07:54 96 Room Air* 0 21 03/16/25 04:54 98.4 82 17 136/62 96 Room Air LABS: Hematology Labs: Test 03/15/25 04:15 Range/Units White Blood Count 14.2 H 4.8-10.8 K/uL Red Blood Count 4.07 4.00-5.50 MIL/uL Hemoglobin 11.8 L 12.0-16.0 g/dL Hematocrit 35.0 L 36-48 % Mean Corpuscular Volume 86.0 79-99 fL Mean Corpuscular Hemoglobin 29.0 27.0-33.0 pg Mean Corpuscular Hemoglobin Concent 33.7 32.0-36.0 g/dL Red Cell Distribution Width 13.7 11.0-15.5 % Platelet Count 151 130-400 K/uL Mean Platelet Volume 11.2 H 7.5-10.5 fL Immature Granulocyte % (Auto) 0.7 0-1 % Neutrophils (%) (Auto) 93.0 H 40.0-77.0 % Lymphocytes (%) (Auto) 2.9 L 21.0-51.0 % Monocytes (%) (Auto) 3.3 3.0-13.0 % Eosinophils (%) (Auto) 0.0 0.0-8.0 % Basophils (%) (Auto) 0.1 0.0-5.0 % Neutrophils # (Auto) 13.2 H 1.8-7.7 K/uL Lymphocytes # (Auto) 0.4 L 1.0-4.8 K/uL Monocytes # (Auto) 0.5 0.1-1.0 K/uL Eosinophils # (Auto) 0.00 0.00-0.70 K/uL Basophils # (Auto) 0.02 0.00-0.20 K/uL Absolute Immature Granulocyte (auto 0.10 0-1 K/uL Nucleated Red Blood Cells 0.0 0.0-0.19 % Chemistry Labs: Test 03/16/25 10:54 03/16/25 05:22 03/15/25 04:15 Range/Units Whole Blood Glucose 215 H 70-110 MG/DL Bedside Glucose Comment Notified Nurse Sodium Level 133 L 136-145 mmol/L Potassium Level 3.6 3.5-5.1 mmol/L Chloride Level 103 101-111 mmol/L Carbon Dioxide Level 20 L 21-32 mmol/L Blood Urea Nitrogen 29 H 7-18 mg/dL Creatinine 1.1 H 0.5-1.0 mg/dL Glomerular Filtration Rate Calc 52 >90 mL/min Random Glucose 224 H 70-105 mg/dL Total Calcium 8.4 L 8.5-10.1 mg/dL Total Bilirubin 1.6 H 0.2-1.0 mg/dL Aspartate Amino Transf (AST/SGOT) 57 H 10-37 U/L Alanine Aminotransferase (ALT/SGPT) 40 12-78 U/L Alkaline Phosphatase 216 H 50-136 U/L Total Protein 5.8 L 6.0-8.3 g/dL Albumin 1.7 L 3.5-5.0 g/dL Phosphorus Level 3.1 2.5-4.9 mg/dL Magnesium Level 2.20 1.80-2.40 mg/dL Procalcitonin 1.35 H 0.05-0.5 ng/mL DIAGNOSTICS / RADIOLOGY RESULTS: [ ] PLAN NEURO: Minimize central acting medications as possible. Maintain fall precautions, adequate lighting during the day PULMONARY: Supplemental 02 as needed. Maintain aspiration precautions at all times CARDIOVASCULAR: Follow hemodynamics. Vital signs per facility protocol GI & NUTRITION: Continue with nutritional support. Continue stool softeners and laxatives as needed. KIDNEYS & ELECTROLYTES: Strict monitoring of intake, output and overall fluid balance. Avoid nephrotoxic medications to the extent possible. Medications to be dosed according to renal function. Monitor electrolytes and replace as needed ENDOCRINE: Maintain blood glucose between 100-180 at all times. Hypoglycemia protocol in place INFECTIOUS DISEASE: Trend temperature, WBC and procalcitonin level Follow cultures, deescalate antibiotics as soon as possible. Panculture if new onset fever ONCOLOGY/HEMATOLOGY/COAGULATION: Monitor for s/s of bleeding Monitor hemoglobin, coagulation studies as needed SKIN: Pressure ulcer prevention per facility protocol Specialty mattress ORTHO/REHAB: Continue PT/OT Prophylaxis: Continue GI and DVT prophylaxis Code Status: Full Resuscitation Disposition: SHELLY ROWELL Mar 16, 2025 11:05
[2025-03-16] MEDS: INDOCYANINE GREEN 25 MG VIAL IJ ONE (11:11)
[2025-03-16] MEDS ORDERED: MIDAZOLAM HCL 1 MG/ML 2ML VIAL ONE (11:20)
[2025-03-16] MEDS ORDERED: LIDOCAINE 2%-EPI 1:200,000 20 ML VIAL IJ ONE (11:47)
[2025-03-16] MEDS ORDERED: GLYCOPYRROLATE 0.2 MG/ML 5 ML VIAL ONE (13:16)
[2025-03-16] MEDS ORDERED: NEOSTIGMINE METHYLSULFATE 1MG/ML IV ONE (13:16)
--- NOTE | 2025-03-16 13:29 | OP ---
Operative Note: DATE OF PROCEDURE: 03/16/25 PROCEDURE PERFORMED: Robotic cholecystectomy. PREOPERATIVE DIAGNOSIS: Acute cholecystitis POSTOPERATIVE DIAGNOSIS: Gangrenous cholecystitis ANESTHESIA: General endotracheal. SURGEON: Tiana Villatoro MD DEVICE LEFT IN PLACE: 10 Grenadian flat drain FLUIDS AND BLOOD PRODUCTS: Per anesthesia report. SPECIMENS REMOVED: Gallbladder. COMPLICATIONS: None immediate. PATIENT CONDITION: Stable. Blood loss: Minimal DESCRIPTION OF PROCEDURE: The patient was brought to the operating room and placed on the operating table in a supine position. Once general endotracheal anesthesia was achieved the patient's abdomen is prepped and draped in sterile fashion. Had then proceeded to create a transverse incision at the left upper quadrant at plascencia's point and under direct visualization went through the abdominal wall with a 5 mm Optiview entered the abdominal cavity and obtain a pneumoperitoneum. After obtaining pneumoperitoneum we placed under direct visualization to 8 mm trocars one in the far right flank and the other one in the right lower abdomen. I then switched out the 5 mm trocar in the left upper quadrant for 8 mm trocar. And then placed another 8 mm trocar in the left hemiabdomen to the left of the midline through the rectus muscle for the camera. Place the patient in reverse Trendelenburg and rotated to the left. Brought the robot over top of the patient right and docked the robot. There was significant amount of adhesions to the gallbladder that were taken down with the cautery with dissection. 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 It was all suctioned out. We proceeded to drain the gallbladder so we could get a good grasp on it. It was very friable. I then proceeded to retract the gallbladder from the fundus and infundibulum and started our dissection of the hilum. We bluntly dissected the hilum to expose the cystic duct and cystic artery and once we had a critical view for safety, which was confirmed with firefly technology. We proceeded to place two clips in the cystic duct proximally and distally. We divided and then did the same with our cystic artery. We then proceeded to remove the gallbladder off the liver bed using Bovie cautery. Once this was done, we then proceeded to evaluate the liver bed for hemostasis. We made sure there was no bile leaks or any bleeding. I then proceeded to bring the 5 mm Endo-Catch bag through the lateral right port. Placed the gallbladder within the bag. Through this right lateral trocar introduced a 10 Grenadian flat drain. We then proceeded to remove the trocar in this area and dilated the muscle with a hemostat and proceeded to remove the gallbladder through this right lateral port. I then closed the muscle with a running 2-0 V lock suture. The drain was secured to the skin using 2-0 nylon suture. We then proceeded to undocked our all her instruments and the robot. Removed all the trocars from the abdominal wall confirmed no bleeding. the skin incisions were closed using skin nacho. a sterile dressing was applied. The patient tolerated the procedure well. All counts correct x2 at the end of the procedure TIANA VILLATORO MD Mar 16, 2025 13:29
[2025-03-16] MEDS: ZOSYN 3.375GM+NS 50ML 50 ML ONE (14:02)
[2025-03-17] VITALS (7 sets, daily range): BP systolic 113–148; BP diastolic 62–64; PULSE 72–79; RESP 16–19; TEMP 97.7–98.2; O2SAT 96–98
[2025-03-17 04:41] LABS: IMMATURE GRANULOCYTE ABSOLUTE 0.10 K/uL (0-1); NUCLEATED RED BLOOD CELLS 0.0 % (0.0-0.19); PLATELET COUNT (AUTO) 195 K/uL (130-400); RED BLOOD CELL COUNT(AUTO) 3.98 MIL/uL (4.00-5.50); RED CELL DISTRIBUTION WIDTH 14.1 % (11.0-15.5); WHITE BLOOD COUNT (AUTO) 12.5 K/uL (4.8-10.8)
[2025-03-17 05:09] LABS: ASPARTATE AMINOTRANSFERASE 67.0 U/L (10-37); CREATININE 0.9 mg/dL (0.5-1.0); GLOMERULAR FILTR. RATE CALC 66.0 mL/min (>90); GLUCOSE,RANDOM 274.0 mg/dL (70-105); SODIUM SERUM 133.0 mmol/L (136-145); TOTAL PROTEIN, SERUM 5.6 g/dL (6.0-8.3); UREA NITROGEN, BLOOD 25.0 mg/dL (7-18)
--- NOTE | 2025-03-17 10:27 | PN ---
This is a 74-year-old female postop day one for robotic cholecystectomy with gangrenous cholecystitis Interval history: This 74-year-old female seen in her resting DEB in place with serosanguineous output Patient is passing a little gas Patient tolerating clear liquid diet WBCs 12 with a hemoglobin of 11 Total bilirubin trending down to 1.3 Physical exam General: Awake alert and oriented Heart: Regular rate and rhythm} Lungs: Clear to auscultation no distress Abdomen: [Soft, nontender, nondistended DEB in place Assessment : This is a 74-year-old female status post cholecystectomy with gangrenous cholecystitis Plan: From surgical standpoint patient will require several days of IV antibiotics before discharge Diet to be advanced as tolerated Patient encouraged to ambulate Strict I's and O's of DEB drain Dr. Villatoro to be updated in patient's status and surgical team to follow patient closely Vitals/Labs Vital Signs Date Time Temp Pulse Resp B/P (MAP) Pulse Ox O2 Delivery O2 Flow Rate FiO2 03/17/25 08:00 98.1 72 19 146/64 96 Room Air 03/17/25 04:00 21 03/16/25 20:00 0 Laboratory Tests 03/17/25 04:32 Medications Current Medications Ondansetron HCl 4 mg ONCE ONCE IVP Last administered on 03/13/25 20:46; Start 03/13/25 at 20:30; Stop 03/13/25 at 20:31; Status DC Famotidine 20 mg ONCE ONCE IV Last administered on 03/13/25 20:46; Start 03/13/25 at 20:30; Stop 03/13/25 at 20:31; Status DC Sodium Chloride 1,000 ml @ 0 mls/hr ONCE ONCE IV Last administered on 03/13/25 20:46; Start 03/13/25 at 20:30; Stop 03/13/25 at 20:31; Status DC Piperacillin Sod/ Tazobactam Sod 3.375 gm ONCE ONCE IV Last administered on 03/13/25at 22:22; Start 03/13/25 at 21:30; Stop 03/13/25 at 21:31; Status DC Iohexol 75 ml STK-MED ONCE IV; Start 03/13/25 at 21:52; Stop 03/13/25 at 21:53; Status DC Ketorolac Tromethamine 30 mg Q6H PRN IM Last administered on 03/14/25at 12:39; Start 03/14/25 at 00:00; Stop 03/14/25 at 13:12; Status DC Hydromorphone HCl 0.5 mg Q4H PRN IVP Last administered on 03/14/25at 08:50; Start 03/14/25 at 00:00; Stop 03/19/25 at 00:00 Piperacillin Sod/ Tazobactam Sod 3.375 gm Q8H IVPB Last administered on 03/17/25at 04:20; Start 03/14/25 at 05:00; Stop 03/24/25 at 04:59 Sodium Chloride 50 ml AD IV; Start 03/13/25 at 05:00; Stop 03/14/25 at 07:19; Status DC Promethazine HCl 12.5 mg Q6H PRN PO; Start 03/14/25 at 01:30; Stop 04/13/25 at 01:29 Sodium Chloride 1,000 ml @ 75 mls/hr [id number] IV Last administered on 03/16/25at 20:28; Start 03/14/25 at 01:30; Stop 04/13/25 at 01:29 Ondansetron HCl 4 mg Q6H PRN IVP Last administered on 03/16/25at 04:15; Start 03/14/25 at 01:30; Stop 04/13/25 at 01:29 Acetaminophen 650 mg Q6H PRN PO; Start 03/14/25 at 04:30; Stop 04/13/25 at 04:29 Acetaminophen 650 mg Q6H PRN RC; Start 03/14/25 at 04:30; Stop 04/13/25 at 04:29 Lactulose 20 gm Q6H PRN PO; Start 03/14/25 at 04:30; Stop 04/13/25 at 04:29 Docusate Sodium 100 mg BID PRN PO; Start 03/14/25 at 04:30; Stop 04/13/25 at 04:29 Temazepam 15 mg HS PRN PO; Start 03/14/25 at 04:30; Stop 04/13/25 at 04:29 Labetalol HCl 10 mg Q2H PRN IV; Start 03/14/25 at 04:30; Stop 04/13/25 at 04:29 Insulin Human Regular INSULIN SLIDING SCAL... ACHS SQ Last administered on 03/17/25at 06:17; Start 03/14/25 at 07:30; Stop 04/13/25 at 07:29 Dextrose 50 ml AD PRN IV; Start 03/14/25 at 04:30; Stop 04/13/25 at 04:29 Glucagon 1 mg AD PRN IM; Start 03/14/25 at 04:30; Stop 04/13/25 at 04:29 Magnesium Sulfate 50 ml @ 0 mls/hr PROTOCOL PRN IV; Start 03/14/25 at 04:30; Stop 04/13/25 at 04:29 Potassium Chloride 100 ml @ 100 mls/hr AD PRN IV Last administered on 03/15/25at 09:23; Start 03/14/25 at 04:30; Stop 04/13/25 at 04:29 Ketorolac Tromethamine 15 mg Q6H PRN IV; Start 03/14/25 at 18:00; Stop 03/19/25 at 17:59 Gadoterate Meglumine 10 mmol STK-MED ONCE IV; Start 03/14/25 at 15:38; Stop 03/14/25 at 15:38; Status DC Indocyanine Green 25 mg STK-MED ONCE IJ Last administered on 03/16/25at 11:11; Start 03/16/25 at 11:06; Stop 03/16/25 at 11:06; Status DC Bupivacaine HCl 5 mg STK-MED ONCE .ROUTE; Start 03/16/25 at 11:19; Stop 03/16/25 at 11:19; Status DC Bupivacaine HCl 2.5 mg STK-MED ONCE IJ Last administered on 03/16/25at 12:14; Start 03/16/25 at 11:19; Stop 03/16/25 at 11:19; Status DC Propofol 200 mg STK-MED ONCE IV; Start 03/16/25 at 11:20; Stop 03/16/25 at 11:21; Status DC Midazolam HCl 2 mg STK-MED ONCE .ROUTE; Start 03/16/25 at 11:20; Stop 03/16/25 at 11:21; Status DC Rocuronium [place] 50 mg STK-MED ONCE .ROUTE; Start 03/16/25 at 11:21; Stop 03/16/25 at 11:21; Status DC Fentanyl Citrate 100 mcg STK-MED ONCE .ROUTE; Start 03/16/25 at 11:21; Stop 03/16/25 at 11:21; Status DC Ropivacaine 150 mg STK-MED ONCE .ROUTE; Start 03/16/25 at 11:47; Stop 03/16/25 at 11:47; Status DC Lidocaine/ Epinephrine 20 ml STK-MED ONCE IJ; Start 03/16/25 at 11:47; Stop 03/16/25 at 11:48; Status DC Cefazolin Sodium 2 gm STK-MED ONCE .ROUTE Last administered on 03/16/25at 12:17; Start 03/16/25 at 12:17; Stop 03/16/25 at 12:18; Status DC Phenylephrine HCl 10 mg STK-MED ONCE IV; Start 03/16/25 at 12:36; Stop 03/16/25 at 12:36; Status DC Glycopyrrolate 1 mg STK-MED ONCE .ROUTE; Start 03/16/25 at 13:16; Stop 03/16/25 at 13:16; Status DC Neostigmine Methylsulfate 10 mg STK-MED ONCE IV; Start 03/16/25 at 13:16; Stop 03/16/25 at 13:16; Status DC Ondansetron HCl 4 mg STK-MED ONCE .ROUTE; Start 03/16/25 at 13:17; Stop 03/16/25 at 13:17; Status DC Fentanyl Citrate 100 mcg STK-MED ONCE .ROUTE; Start 03/16/25 at 13:27; Stop 03/16/25 at 13:27; Status DC Piperacillin Sod/ Tazobactam Sod 50 ml @ As Directed STK-MED ONCE .ROUTE; Start 03/16/25 at 13:59; Stop 03/16/25 at 14:00; Status DC TOMASA LAWRENCE Jr. Mar 17, 2025 10:27
--- NOTE | 2025-03-17 11:15 | PN ---
[facility] PROGRESS NOTE Date Patient Seen: Mar 17, 2025 Time of Visit: 11:09 Supervising Physician: Whitney Maldonado Primary Care Physician: RUBI MONIQUE M.D. (PCP) Outpatient Specialists: Inpatient Consults: Dr Villatoro PROBLEM LIST: Cholelithiasis with acute cholecystitis. - s/p lap shiv w/ franki drain placement (03/16/25) Hyperglycemia in a type 2 diabetic Hyperlipidemia Fatty liver Hypertension Plan Summary: Supplemental oxygen as needed Continue Zosyn Monitor FRANKI drain output q.shift Advance diet as tolerated Follow surgical recommendation Dispo: Home in the next 24-48 hours INTERVAL HISTORY: Ms. Gamble is a 74-year-old female with a history of DM, HTN, hypercholesteremia, and gallstones who presented [place] [facility] [place] for evaluation of increased generalized body weakness chills, and nausea. She also reports diffuse abdominal pain. According to family the patient was treated for urinary tract infection several weeks ago. She was seen at [facility] on March 10 and diagnosed with gallstones but ultimately discharged. She follow up with your PCP who referred her to GI but is pending an appointment. CT abdomen and pelvis with contrast: Cholelithiasis with acute cholecystitis. There is about 2.2 x 0.6 x 1.2 cm periurethral cyst on the left side. In ED the patient received Zosyn, NS1 L bolus, Pepcid, Zofran. ED provider request patient be admitted with the diagnosis of cholelithiasis with acute cholecystitis. I went to assess the patient at bedside. Patient appeared comfortable breathing was even, unlabored, in no distress. I informed the patient and daughter at bedside labs, diagnostics, and plan of care. They verbalized understanding and are in agreement with the plan. Plan and assessment are listed below. 03/16 - Patient was seen and examined, all labs and imaging have been reviewed, patient reporting continued right upper quadrant abdominal pain. She is NPO. Her vital signs are stable. She is afebrile MRCP positive for gallbladder perforation . 03/17 - patient is seen ambulating around the room and continues to complain of [id number] abdominal pain. Patient is day1 status post lap shiv. Patient tolerated the procedure well. Patient has FRANKI drain placed and as per nursing, had 150 mL output in the last 24 hours. Patient has been started on clear liquid diet and tolerating well with no nausea, vomiting or worsening abdominal pain. Patient was evaluated by surgical team and cleared patient for diet to be advanced. Patient continues on IV antibiotics for gangrenous cholecystitis. Discussed this case one-to-one with surgical team and recommends at least 24-48 hours of continue IV antibiotics prior to discharge. We will continue current treatment plan for now. Vital signs are stable. Labs show white count has trended down. REVIEW OF SYSTEMS: 12 point ROS reviewed with patient. Pertinent positives mentioned above. Otherwise negative. PHYSICAL EXAM: GENERAL: alert, awake oriented x 3 HEENT: EOMI, Sclera non icteric, moist mucosa NECK: Supple, no JVD, trachea midline LUNGS: Clear breath sounds bilaterally. No wheezes HEART: Regular rate and rhythm. Normal S1 and S2, without murmurs ABD: Abdomen soft, generalized abdominal tender. Bowel sounds present FRANKI drain to right upper quadrant EXT: No clubbing cyanosis or edema NEURO: Alert and oriented to x3, follows commands Vital Signs (last 8hr) Date Time Temp Pulse Resp B/P (MAP) Pulse Ox O2 Delivery O2 Flow Rate FiO2 03/17/25 08:00 98.1 72 19 146/64 96 Room Air 03/17/25 04:00 98.2 73 16 140/64 98 Room Air 21 LABS: Hematology Labs: Test 03/17/25 04:32 Range/Units White Blood Count 12.5 H 4.8-10.8 K/uL Red Blood Count 3.98 L 4.00-5.50 MIL/uL Hemoglobin 11.3 L 12.0-16.0 g/dL Hematocrit 33.9 L 36-48 % Mean Corpuscular Volume 85.2 79-99 fL Mean Corpuscular Hemoglobin 28.4 27.0-33.0 pg Mean Corpuscular Hemoglobin Concent 33.3 32.0-36.0 g/dL Red Cell Distribution Width 14.1 11.0-15.5 % Platelet Count 195 # 130-400 K/uL Mean Platelet Volume 10.3 7.5-10.5 fL Immature Granulocyte % (Auto) 0.8 0-1 % Neutrophils (%) (Auto) 88.0 H 40.0-77.0 % Lymphocytes (%) (Auto) 4.4 L 21.0-51.0 % Monocytes (%) (Auto) 6.6 3.0-13.0 % Eosinophils (%) (Auto) 0.0 0.0-8.0 % Basophils (%) (Auto) 0.2 0.0-5.0 % Neutrophils # (Auto) 11.0 H 1.8-7.7 K/uL Lymphocytes # (Auto) 0.6 L 1.0-4.8 K/uL Monocytes # (Auto) 0.8 0.1-1.0 K/uL Eosinophils # (Auto) 0.00 0.00-0.70 K/uL Basophils # (Auto) 0.02 0.00-0.20 K/uL Absolute Immature Granulocyte (auto 0.10 0-1 K/uL Nucleated Red Blood Cells 0.0 0.0-0.19 % Chemistry Labs: Test 03/17/25 05:14 03/17/25 04:32 03/16/25 10:54 Range/Units Whole Blood Glucose 268 H 70-110 MG/DL Sodium Level 133 L 136-145 mmol/L Potassium Level 3.8 3.5-5.1 mmol/L Chloride Level 104 101-111 mmol/L Carbon Dioxide Level 21 21-32 mmol/L Blood Urea Nitrogen 25 H 7-18 mg/dL Creatinine 0.9 0.5-1.0 mg/dL Glomerular Filtration Rate Calc 66 >90 mL/min Random Glucose 274 H 70-105 mg/dL Total Calcium 7.7 L 8.5-10.1 mg/dL Total Bilirubin 1.3 H 0.2-1.0 mg/dL Aspartate Amino Transf (AST/SGOT) 67 H 10-37 U/L Alanine Aminotransferase (ALT/SGPT) 49 # 12-78 U/L Alkaline Phosphatase 222 H 50-136 U/L Total Protein 5.6 L 6.0-8.3 g/dL Albumin 1.5 L 3.5-5.0 g/dL Bedside Glucose Comment Notified Nurse DIAGNOSTICS / RADIOLOGY RESULTS: [ ] PLAN NEURO: Minimize central acting medications as possible. Maintain fall precautions, adequate lighting during the day PULMONARY: Supplemental 02 as needed. Maintain aspiration precautions at all times CARDIOVASCULAR: Follow hemodynamics. Vital signs per facility protocol GI & NUTRITION: Continue with nutritional support. Continue stool softeners and laxatives as needed. KIDNEYS & ELECTROLYTES: Strict monitoring of intake, output and overall fluid balance. Avoid nephrotoxic medications to the extent possible. Medications to be dosed according to renal function. Monitor electrolytes and replace as needed ENDOCRINE: Maintain blood glucose between 100-180 at all times. Hypoglycemia protocol in place INFECTIOUS DISEASE: Trend temperature, WBC and procalcitonin level Follow cultures, deescalate antibiotics as soon as possible. Panculture if new onset fever ONCOLOGY/HEMATOLOGY/COAGULATION: Monitor for s/s of bleeding Monitor hemoglobin, coagulation studies as needed SKIN: Pressure ulcer prevention per facility protocol Specialty mattress ORTHO/REHAB: Continue PT/OT Prophylaxis: Continue GI and DVT prophylaxis Code Status: Full Resuscitation Disposition: Home in 24-48 hours. ATTESTATION BY PHYSICIAN I have seen and examined the patient. I reviewed the documentation, medical decision making, and treatment plan as noted by the mid-level provider above. I agree with the findings and plan of care. Andriy Maldonado MD, ECTOR N NP Mar 17, 2025 11:15
[2025-03-18] VITALS: BP 128/59; PULSE 63; RESP 17; TEMP 97.3
[2025-03-18 04:00] VITALS: BP 121/54; PULSE 77; RESP 17; TEMP 97.7
[2025-03-18 04:59] LABS: NUCLEATED RED BLOOD CELLS 0.0 % (0.0-0.19); PLATELET COUNT (AUTO) 212.0 K/uL (130-400); RED BLOOD CELL COUNT(AUTO) 3.85 MIL/uL (4.00-5.50); RED CELL DISTRIBUTION WIDTH 14.2 % (11.0-15.5); WHITE BLOOD COUNT (AUTO) 12.7 K/uL (4.8-10.8)
[2025-03-18 05:08] LABS: CREATININE 0.7 mg/dL (0.5-1.0); GLOMERULAR FILTR. RATE CALC 90.0 mL/min (>90); GLUCOSE,RANDOM 243.0 mg/dL (70-105); SODIUM SERUM 136.0 mmol/L (136-145); UREA NITROGEN, BLOOD 17.0 mg/dL (7-18)
[2025-03-18 08:00] VITALS: BP 131/56; PULSE 75; RESP 18; TEMP 98; O2SAT 97
--- NOTE | 2025-03-18 10:00 | NUR ---
home med SPOKE TO FAMILY REGARDING HOME MEDS. PATIENT SAID THEY WILL BRING HER HOME MEDICATIONS TOMORROW.
--- NOTE | 2025-03-18 10:23 | PN ---
[facility] PROGRESS NOTE Date Patient Seen: Mar 18, 2025 Time of Visit: 10:19 Supervising Physician: Dr Laura Breaux Primary Care Physician: RUBI MONIQUE M.D. (PCP) Outpatient Specialists: Inpatient Consults: Dr Villatoro PROBLEM LIST: Cholelithiasis with acute cholecystitis. - s/p lap shiv 03/16/25 2.2 x 0.6 x 1.2 cm periurethral cyst on the left side Hyperglycemia in a type 2 diabetic Hyperlipidemia Fatty liver Hypertension PLAN SUMMARY: Supplemental oxygen as needed Continue Zosyn Monitor DEB drain output Q shift Surgical team recs Encourage of bed and ambulate Dispo: Home in 24-48 hours INTERVAL HISTORY: Ms. Gamble is a 74-year-old female with a history of DM, HTN, hypercholesteremia, and gallstones who presented to [facility] for evaluation of increased generalized body weakness chills, and nausea. She also reports diffuse abdominal pain. According to family the patient was treated for urinary tract infection several weeks ago. She was seen at [facility] on March 10 and diagnosed with gallstones but ultimately discharged. She follow up with your PCP who referred her to GI but is pending an appointment. CT abdomen and pelvis with contrast: Cholelithiasis with acute cholecystitis. There is about 2.2 x 0.6 x 1.2 cm periurethral cyst on the left side. In ED the patient received Zosyn, NS1 L bolus, Pepcid, Zofran. ED provider request patient be admitted with the diagnosis of cholelithiasis with acute cholecystitis. I went to assess the patient at bedside. Patient appeared comfortable breathing was even, unlabored, in no distress. I informed the patient and daughter at bedside labs, diagnostics, and plan of care. They verbalized understanding and are in agreement with the plan. Plan and assessment are listed below. 03/16 - Patient was seen and examined, all labs and imaging have been reviewed, patient reporting continued right upper quadrant abdominal pain. She is NPO. Her vital signs are stable. She is afebrile MRCP positive for gallbladder perforation . 03/17 - patient is seen ambulating around the room and continues to complain of [id number] abdominal pain. Patient is day1 status post lap shiv. Patient tolerated the procedure well. Patient has DEB drain placed and as per nursing, had 150 mL output in the last 24 hours. Patient has been started on clear liquid diet and tolerating well with no nausea, vomiting or worsening abdominal pain. Patient was evaluated by surgical team and cleared patient for diet to be advanced. Patient continues on IV antibiotics for gangrenous cholecystitis. Discussed this case one-to-one with surgical team and recommends at least 24-48 hours of continue IV antibiotics prior to discharge. We will continue current treatment plan for now. Vital signs are stable. Labs show white count has trended down. 03/18 - patient is seen sitting up in bed accompanied by her . Patient does not appear to be in any acute distress at this time. Patient is was advanced to GI soft and thus far tolerating well with no nausea, vomiting, or worsening abdominal pain. Patient's DEB drain continues with about 150 mL output in the last24 hours. Vital signs are stable. Labs show white count remains elevated at 12.7. Procalcitonin negative for it we will continue current antibiotic treatment for now. We will plan to DC home once cleared from surgical standpoint. REVIEW OF SYSTEMS: 12 point ROS reviewed with patient. Pertinent positives mentioned above. Otherwise negative. PHYSICAL EXAM: GENERAL: alert, awake oriented x 3 HEENT: EOMI, Sclera non icteric, moist mucosa NECK: Supple, no JVD, trachea midline LUNGS: Clear breath sounds bilaterally. No wheezes HEART: Regular rate and rhythm. Normal S1 and S2, without murmurs ABD: Abdomen soft, generalized abdominal tender. Bowel sounds present DEB drain to right upper quadrant EXT: No clubbing cyanosis or edema NEURO: Alert and oriented to x3, follows commands Vital Signs (last 8hr) Date Time Temp Pulse Resp B/P (MAP) Pulse Ox O2 Delivery O2 Flow Rate FiO2 03/18/25 08:00 98.1 75 18 131/56 97 Room Air 03/18/25 04:00 97.7 77 17 121/54 96 Room Air 21 LABS: Hematology Labs: Test 03/18/25 04:28 03/17/25 04:32 Range/Units White Blood Count 12.7 H 4.8-10.8 K/uL Red Blood Count 3.85 L 4.00-5.50 MIL/uL Hemoglobin 11.0 L 12.0-16.0 g/dL Hematocrit 32.2 L 36-48 % Mean Corpuscular Volume 83.6 79-99 fL Mean Corpuscular Hemoglobin 28.6 27.0-33.0 pg Mean Corpuscular Hemoglobin Concent 34.2 32.0-36.0 g/dL Red Cell Distribution Width 14.2 11.0-15.5 % Platelet Count 212 130-400 K/uL Mean Platelet Volume 11.0 H 7.5-10.5 fL Nucleated Red Blood Cells 0.0 0.0-0.19 % Immature Granulocyte % (Auto) 0.8 0-1 % Neutrophils (%) (Auto) 88.0 H 40.0-77.0 % Lymphocytes (%) (Auto) 4.4 L 21.0-51.0 % Monocytes (%) (Auto) 6.6 3.0-13.0 % Eosinophils (%) (Auto) 0.0 0.0-8.0 % Basophils (%) (Auto) 0.2 0.0-5.0 % Neutrophils # (Auto) 11.0 H 1.8-7.7 K/uL Lymphocytes # (Auto) 0.6 L 1.0-4.8 K/uL Monocytes # (Auto) 0.8 0.1-1.0 K/uL Eosinophils # (Auto) 0.00 0.00-0.70 K/uL Basophils # (Auto) 0.02 0.00-0.20 K/uL Absolute Immature Granulocyte (auto 0.10 0-1 K/uL Chemistry Labs: Test 03/18/25 05:03 03/18/25 04:28 03/17/25 04:32 03/16/25 10:54 Range/Units Whole Blood Glucose 247 H 70-110 MG/DL Sodium Level 136 136-145 mmol/L Potassium Level 3.6 3.5-5.1 mmol/L Chloride Level 106 101-111 mmol/L Carbon Dioxide Level 22 21-32 mmol/L Blood Urea Nitrogen 17 7-18 mg/dL Creatinine 0.7 0.5-1.0 mg/dL Glomerular Filtration Rate Calc 90 >90 mL/min Random Glucose 243 H 70-105 mg/dL Total Calcium 7.5 L 8.5-10.1 mg/dL Procalcitonin 0.38 0.05-0.5 ng/mL Total Bilirubin 1.3 H 0.2-1.0 mg/dL Aspartate Amino Transf (AST/SGOT) 67 H 10-37 U/L Alanine Aminotransferase (ALT/SGPT) 49 # 12-78 U/L Alkaline Phosphatase 222 H 50-136 U/L Total Protein 5.6 L 6.0-8.3 g/dL Albumin 1.5 L 3.5-5.0 g/dL Bedside Glucose Comment Notified Nurse DIAGNOSTICS / RADIOLOGY RESULTS: [ ] PLAN NEURO: Minimize central acting medications as possible. Maintain fall precautions, adequate lighting during the day PULMONARY: Supplemental 02 as needed. Maintain aspiration precautions at all times CARDIOVASCULAR: Follow hemodynamics. Vital signs per facility protocol GI & NUTRITION: Continue with nutritional support. Continue stool softeners and laxatives as needed. KIDNEYS & ELECTROLYTES: Strict monitoring of intake, output and overall fluid balance. Avoid nephrotoxic medications to the extent possible. Medications to be dosed according to renal function. Monitor electrolytes and replace as needed ENDOCRINE: Maintain blood glucose between 100-180 at all times. Hypoglycemia protocol in place INFECTIOUS DISEASE: Trend temperature, WBC and procalcitonin level Follow cultures, deescalate antibiotics as soon as possible. Panculture if new onset fever ONCOLOGY/HEMATOLOGY/COAGULATION: Monitor for s/s of bleeding Monitor hemoglobin, coagulation studies as needed SKIN: Pressure ulcer prevention per facility protocol Specialty mattress ORTHO/REHAB: Continue PT/OT Prophylaxis: Continue GI and DVT prophylaxis Code Status: Full Resuscitation Disposition: Home in 24-48 hours. ATTESTATION BY PHYSICIAN The patient has been seen and evaluated, the case has been discussed with the KENO WRITER/RUNNER, I agree with the clinical findings and plan of care. Efrain Breaux MD, ECTOR N KENO WRITER/RUNNER Mar 18, 2025 10:23
[2025-03-18 12:00] VITALS: BP 121/51; PULSE 75; RESP 18; TEMP 98.5
[2025-03-18 16:00] VITALS: BP 125/78; PULSE 80; RESP 16; TEMP 98
[2025-03-18 20:00] VITALS: BP 133/57; PULSE 77; RESP 20; TEMP 98; O2SAT 96
--- NOTE | 2025-03-18 21:05 | NUR ---
AMBULATION: PT VOICED TO NURSE SHE HAS NOT WALKED OUTSIDE OF ROOM ONLY TO RR AND BACK TO BED. ABDOMEN IS TENDER/DISTENDED, BOWEL SOUNDS AUSCULTATED. PT ENCOURAGED TO AMBULATE TO HELP WITH BOWEL MOTILITY, PASSING GAS, PREVENT POST OP PNEUMONIA AND IMPROVE CIRCULATION. PT/DAUGHTER VERBALIZED UNDERSTANDING. PT WAS ABLE TO AMBULATE TO THE END OF THE HALLWAY AND BACK. PT WAS ABLE TO PASS GAS SEVERAL TIMES WHILE AMBULATING. PT RETURNED TO ROOM, ENCOURAGED TO USE CALL LIGHT FOR ASSISTANCE, CALL YUNG WITHIN REACH.
[2025-03-19] VITALS (8 sets, daily range): BP systolic 131–153; BP diastolic 55–65; PULSE 74–84; RESP 18–24; TEMP 97.5–98.1; O2SAT 98
[2025-03-19 05:31] LABS: IMMATURE GRANULOCYTE ABSOLUTE 0.22 K/uL (0-1); NUCLEATED RED BLOOD CELLS 0.0 % (0.0-0.19); PLATELET COUNT (AUTO) 234 K/uL (130-400); RED BLOOD CELL COUNT(AUTO) 4.03 MIL/uL (4.00-5.50); RED CELL DISTRIBUTION WIDTH 14.4 % (11.0-15.5); WHITE BLOOD COUNT (AUTO) 13.3 K/uL (4.8-10.8)
[2025-03-19 05:43] LABS: CREATININE 1.0 mg/dL (0.5-1.0); GLOMERULAR FILTR. RATE CALC 58.0 mL/min (>90); GLUCOSE,RANDOM 237.0 mg/dL (70-105); SODIUM SERUM 132.0 mmol/L (136-145); UREA NITROGEN, BLOOD 15.0 mg/dL (7-18)
--- NOTE | 2025-03-19 09:48 | PN ---
[facility] PROGRESS NOTE Date Patient Seen: Mar 19, 2025 Time of Visit: 09:45 Supervising Physician: Tara Breaux Primary Care Physician: RUBI MONIQUE M.D. (PCP) Outpatient Specialists: Inpatient Consults: Dr Villatoro PROBLEM LIST: Cholelithiasis with acute cholecystitis. - s/p lap shiv 03/16/25 2.2 x 0.6 x 1.2 cm periurethral cyst on the left side Hyperglycemia in a type 2 diabetic Hyperlipidemia Fatty liver Hypertension PLAN SUMMARY: Supplemental oxygen as needed Continue Zosyn Monitor DEB drain output Q shift Surgical team recs Encourage of bed and ambulate Dispo: Home once cleared by surgical team INTERVAL HISTORY: Ms. Gamble is a 74-year-old female with a history of DM, HTN, hypercholesteremia, and gallstones who presented to [facility] ED for evaluation of increased generalized body weakness chills, and nausea. She also reports diffuse abdominal pain. According to family the patient was treated for urinary tract infection several weeks ago. She was seen at [facility] on March 10 and diagnosed with gallstones but ultimately discharged. She follow up with your PCP who referred her to GI but is pending an appointment. CT abdomen and pelvis with contrast: Cholelithiasis with acute cholecystitis. There is about 2.2 x 0.6 x 1.2 cm periurethral cyst on the left side. In ED the patient received Zosyn, NS1 L bolus, Pepcid, Zofran. ED provider request patient be admitted with the diagnosis of cholelithiasis with acute cholecystitis. I went to assess the patient at bedside. Patient appeared comfortable breathing was even, unlabored, in no distress. I informed the patient and daughter at bedside labs, diagnostics, and plan of care. They verbalized understanding and are in agreement with the plan. Plan and assessment are listed below. 03/16 - Patient was seen and examined, all labs and imaging have been reviewed, patient reporting continued right upper quadrant abdominal pain. She is NPO. Her vital signs are stable. She is afebrile MRCP positive for gallbladder perforation . 03/17 - patient is seen ambulating around the room and continues to complain of [id number] abdominal pain. Patient is day1 status post lap shiv. Patient tolerated the procedure well. Patient has DEB drain placed and as per nursing, had 150 mL output in the last 24 hours. Patient has been started on clear liquid diet and tolerating well with no nausea, vomiting or worsening abdominal pain. Patient was evaluated by surgical team and cleared patient for diet to be advanced. Patient continues on IV antibiotics for gangrenous cholecystitis. Discussed this case one-to-one with surgical team and recommends at least 24-48 hours of continue IV antibiotics prior to discharge. We will continue current treatment plan for now. Vital signs are stable. Labs show white count has trended down. 03/18 - patient is seen sitting up in bed accompanied by her . Patient does not appear to be in any acute distress at this time. Patient is was advanced to GI soft and thus far tolerating well with no nausea, vomiting, or worsening abdominal pain. Patient's DEB drain continues with about 150 mL output in the last24 hours. Vital signs are stable. Labs show white count remains elevated at 12.7. Procalcitonin negative for it we will continue current antibiotic treatment for now. We will plan to DC home once cleared from surgical standpoint. 03/19 - patient is seen ambulating with the room accompanied by her . Patient with no signs of acute distress. Patient had 140 mL put via J-tube in the last24 hours. No acute changes reported overnight. Patient continues on IV Zosyn . Vital signs are stable. Labs show patient continues with leukocytosis of 13.3. Patient is on a GI soft diet and tolerating well with no nausea, vomiting or worsening abdominal pain. We will continue current treatment plan for now. We will plan to DC home once cleared by surgical team. REVIEW OF SYSTEMS: 12 point ROS reviewed with patient. Pertinent positives mentioned above. Otherwise negative. PHYSICAL EXAM: GENERAL: alert, awake oriented x 3 HEENT: EOMI, Sclera non icteric, moist mucosa NECK: Supple, no JVD, trachea midline LUNGS: Clear breath sounds bilaterally. No wheezes HEART: Regular rate and rhythm. Normal S1 and S2, without murmurs ABD: Abdomen soft, generalized abdominal tender. Bowel sounds present DEB drain to right upper quadrant EXT: No clubbing cyanosis or edema NEURO: Alert and oriented to x3, follows commands Vital Signs (last 8hr) Date Time Temp Pulse Resp B/P (MAP) Pulse Ox O2 Delivery O2 Flow Rate FiO2 03/19/25 08:00 97.9 75 18 131/61 98 Room Air 03/19/25 04:00 98.1 79 20 136/55 99 Room Air LABS: Hematology Labs: Test 03/19/25 04:55 Range/Units White Blood Count 13.3 H 4.8-10.8 K/uL Red Blood Count 4.03 4.00-5.50 MIL/uL Hemoglobin 11.5 L 12.0-16.0 g/dL Hematocrit 33.6 L 36-48 % Mean Corpuscular Volume 83.4 79-99 fL Mean Corpuscular Hemoglobin 28.5 27.0-33.0 pg Mean Corpuscular Hemoglobin Concent 34.2 32.0-36.0 g/dL Red Cell Distribution Width 14.4 11.0-15.5 % Platelet Count 234 130-400 K/uL Mean Platelet Volume 11.3 H 7.5-10.5 fL Immature Granulocyte % (Auto) 1.7 H 0-1 % Neutrophils (%) (Auto) 81.1 H 40.0-77.0 % Lymphocytes (%) (Auto) 8.9 L 21.0-51.0 % Monocytes (%) (Auto) 6.8 3.0-13.0 % Eosinophils (%) (Auto) 1.3 0.0-8.0 % Basophils (%) (Auto) 0.2 0.0-5.0 % Neutrophils # (Auto) 10.8 H 1.8-7.7 K/uL Lymphocytes # (Auto) 1.2 1.0-4.8 K/uL Monocytes # (Auto) 0.9 0.1-1.0 K/uL Eosinophils # (Auto) 0.17 0.00-0.70 K/uL Basophils # (Auto) 0.03 0.00-0.20 K/uL Absolute Immature Granulocyte (auto 0.22 0-1 K/uL Nucleated Red Blood Cells 0.0 0.0-0.19 % Chemistry Labs: Test 03/19/25 05:23 03/19/25 04:55 03/18/25 16:31 03/18/25 04:28 Range/Units Whole Blood Glucose 237 H 70-110 MG/DL Sodium Level 132 L 136-145 mmol/L Potassium Level 3.7 3.5-5.1 mmol/L Chloride Level 105 101-111 mmol/L Carbon Dioxide Level 21 21-32 mmol/L Blood Urea Nitrogen 15 7-18 mg/dL Creatinine 1.0 0.5-1.0 mg/dL Glomerular Filtration Rate Calc 58 >90 mL/min Random Glucose 237 H 70-105 mg/dL Total Calcium 8.0 L 8.5-10.1 mg/dL Bedside Glucose Comment Notified Nurse Procalcitonin 0.38 0.05-0.5 ng/mL DIAGNOSTICS / RADIOLOGY RESULTS: [ ] PLAN NEURO: Minimize central acting medications as possible. Maintain fall precautions, adequate lighting during the day PULMONARY: Supplemental 02 as needed. Maintain aspiration precautions at all times CARDIOVASCULAR: Follow hemodynamics. Vital signs per facility protocol GI & NUTRITION: Continue with nutritional support. Continue stool softeners and laxatives as needed. KIDNEYS & ELECTROLYTES: Strict monitoring of intake, output and overall fluid balance. Avoid nephrotoxic medications to the extent possible. Medications to be dosed according to renal function. Monitor electrolytes and replace as needed ENDOCRINE: Maintain blood glucose between 100-180 at all times. Hypoglycemia protocol in place INFECTIOUS DISEASE: Trend temperature, WBC and procalcitonin level Follow cultures, deescalate antibiotics as soon as possible. Panculture if new onset fever ONCOLOGY/HEMATOLOGY/COAGULATION: Monitor for s/s of bleeding Monitor hemoglobin, coagulation studies as needed SKIN: Pressure ulcer prevention per facility protocol Specialty mattress ORTHO/REHAB: Continue PT/OT Prophylaxis: Continue GI and DVT prophylaxis Code Status: Full Resuscitation Disposition: Home in 24-48 hours. ATTESTATION BY PHYSICIAN The patient has been seen and evaluated, the case has been discussed with the DIESEL TRUCK CRANE OPERATOR, I agree with the clinical findings and plan of care. Efrain Breaux MD, ECTOR N DIESEL TRUCK CRANE OPERATOR Mar 19, 2025 09:48
[2025-03-20 04:00] VITALS: BP 152/66; PULSE 79; RESP 20; TEMP 98.2
[2025-03-20 08:00] VITALS: BP 148/66; PULSE 81; RESP 19; TEMP 98.1
[2025-03-20 09:11] LABS: NUCLEATED RED BLOOD CELLS 0.0 % (0.0-0.19); PLATELET COUNT (AUTO) 325 K/uL (130-400); RED BLOOD CELL COUNT(AUTO) 4.35 MIL/uL (4.00-5.50); RED CELL DISTRIBUTION WIDTH 14.4 % (11.0-15.5); WHITE BLOOD COUNT (AUTO) 19.1 K/uL (4.8-10.8)
[2025-03-20] MEDS ORDERED: AMOX-426 PO (11:28)
--- NOTE | 2025-03-20 11:33 | DS ---
[facility] DISCHARGE SUMMARY Date Patient Seen: Mar 20, 2025 Time of Visit: 11:30 Supervising Physician: Whitney Garrett Primary Care Physician: RUBI MONIQUE M.D. (PCP) Outpatient Specialists: Inpatient Consults: Dr Villatoro PROBLEM LIST: Cholelithiasis with acute cholecystitis. - s/p lap shiv 03/16/25 2.2 x 0.6 x 1.2 cm periurethral cyst on the left side Hyperglycemia in a type 2 diabetic Hyperlipidemia Fatty liver Hypertension HOSPITAL COURSE: HPI (per admitting provider) Ms. Gamble is a 74-year-old female with a history of DM, HTN, hyp ercholesteremia, and gallstones who presented [place] [facility] for evaluation of increased generalized body weakness chills, and nausea. She also reports diffuse abdominal pain. According to family the patient was treated for urinary tract infection several weeks ago. She was seen at [facility] on March 10 and diagnosed with gallstones but ultimately discharged. She follow up with your PCP who referred her to GI but is pending an appointment. CT abdomen and pelvis with contrast: Cholelithiasis with acute cholecystitis. There is about 2.2 x 0.6 x 1.2 cm periurethral cyst on the left side. In ED the patient received Zosyn, NS1 L bolus, Pepcid, Zofran. ED provider request patient be admitted with the diagnosis of cholelithiasis with acute cholecystitis. I went to assess the patient at bedside. Patient appeared comfortable breathing was even, unlabored, in no distress. I informed the patient and daughter at bedside labs, diagnostics, and plan of care. They verbalized understanding and are in agreement with the plan. Plan and assessment are listed below. 03/16 - Patient was seen and examined, all labs and imaging have been reviewed, patient reporting continued right upper quadrant abdominal pain. She is NPO. Her vital signs are stable. She is afebrile MRCP positive for gallbladder perforation . 03/17 - patient is seen ambulating around the room and continues to complain of [id number] abdominal pain. Patient is day1 status post lap shiv. Patient tolerated the procedure well. Patient has DEB drain placed and as per nursing, had 150 mL output in the last 24 hours. Patient has been started on clear liquid diet and tolerating well with no nausea, vomiting or worsening a bdominal pain. Patient was evaluated by surgical team and cleared patient for diet to be advanced. Patient continues on IV antibiotics for gangrenous cholecystitis. Discussed this case one-to-one with surgical team and recommends at least 24-48 hours of continue IV antibiotics prior to discharge. We will continue current treatment plan for now. Vital signs are stable. Labs show white count has trended down. 03/18 - patient is seen sitting up in bed accompanied by her . Patient does not appear to be in any acute distress at this time. Patient is was advanced to GI soft and thus far tolerating well with no nausea, vomiting, or worsening abdominal pain. Patient's DEB drain continues with about 150 mL output in the last24 hours. Vital signs are stable. Labs show white count remains elevated at 12.7. Procalcitonin negative for it we will continue current antibiotic treatment for now. We will plan to DC home once cleared from surgical standpoint. 03/19 - patient is seen ambulating with the room accompanied by her . Patient with no signs of acute distress. Patient had 140 mL put via J-tube in the last24 hours. No acute changes reported overnight. Patient continues on IV Zosyn . Vital signs are stable. Labs show patient continues with leukocytosis of 13.3. Patient is on a GI soft diet and tolerating well with no nausea, vomiting or worsening abdominal pain. We will continue current treatment plan for now. We will plan to DC home once cleared by surgical team. Today patient is seen ambulating in the room with no signs of acute distress. Patient reports she has been having bowel movements and tolerating diet well with no nausea or vomiting. Patient has remained afebrile. Procalcitonin is negative. Patient does continue with about 150 mL of output via DEB drain every24 hours. Patient has been advised to continue oral antibiotics as prescribed. Patient has been advised to follow up with PCP in the next 1-2 days. Patient has been advised to follow up with General surgery in 1 week for drain removal. Patient verbalized understanding. Medication reconciliation has been completed. New prescriptions have been sent to patient's pharmacy. Education regarding current diagnosis been provided to the patient. All questions have been answered. Patient to be discharged home. The patient was treated for the following problems: ACTIVE PROBLEM LIST FOR THE HOSPITALIZATION: Cholelithiasis with acute cholecystitis. 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 PCP notified of patients admission, hospital course and discharge. New Medications: Amoxicillin/Potassium Clav (Augmentin 500-125 Tablet) 500 Mg-125 Mg Tablet 1 TAB PO BID for 7 Days, #14 TAB 0 Refills PHYSICAL EXAM: GENERAL: alert, awake oriented x 3 HEENT: EOMI, Sclera non icteric, moist mucosa NECK: Supple, no JVD, trachea midline LUNGS: Clear breath sounds bilaterally. No wheezes HEART: Regular rate and rhythm. Normal S1 and S2, without murmurs ABD: Abdomen soft, generalized abdominal tender. Bowel sounds present DEB drain to right upper quadrant EXT: No clubbing cyanosis or edema NEURO: Alert and oriented to x3, follows commands FOLLOW-UP: Follow-up with PCP in 2-3 days Follow up with Dr. Villatoro in 1 week RECOMMENDATIONS: See Discharge Instructions This case was seen and discussed with my supervising physician. More than 30 minutes spent on discharge process, including evaluation of the patient, discussion with nursing staff, medication reconciliation and follow-up appointments ATTESTATION BY PHYSICIAN I have evaluated the patient chart, medical records, and spoke with appropriate staff. I reviewed the documentation, medical decision making, and treatment plan as noted by the mid-level provider above. I agree with the findings and plan of care. Luciano Garrett MD, ECTOR N NP Mar 20, 2025 11:33
[2025-03-20 11:53] LABS: BAND NEUTROPHILS % (MANUAL) 8 % (0-2); LYMPHOCYTES % (MANUAL) 10 % (22-44); METAMYELOCYTES % 2 % (0-0); MONOCYTES % (MANUAL) 5 % (2-9); SEGMENTED NEUTROPHILS % 75 % (40-70)
[2025-03-20 11:54] LABS: MAN.DIFF COMMENT-IMPRESSION MANUAL DIFFERENTIAL; PLATELET MORPHOLOGY COMMENT ADEQUATE
--- NOTE | 2025-03-20 14:00 | NUR ---
NOTED CLEARED FOR DC TODAY BY PRIMARY TEAM . HOME WITH DEB DRAIN IN PLACE. PER PROTOCOL, PATIENTS WITH DEB DRAINS ARE TAUGHT HOW TO EMPTY DRAIN AND TAUGHT DEB SITE /WOUND CARE. CM TO FOLLOW UP VIA TELEPHONE ON SUNDAY.
== END 2025-03-20 14:30 | disposition home or self-care (01) | DRG 854 ==
LOC: EDH 19:36 → EDHIP 23:28 → 3AH 03-14 01:25
PROVIDERS: ADMIT Internal Medicine Critical Care Medicine; ATTEND Internal Medicine Critical Care Medicine
PROC: 8E0W4CZ Robotic Assisted Procedure of Trunk Region, Percutaneous Endoscopic Approach (ICD-10-PCS; 2025-03-16)
PROC: 0FT44ZZ Resection of Gallbladder, Percutaneous Endoscopic Approach (ICD-10-PCS; principal; 2025-03-16 11:47)
DX: A41.9 Sepsis, unspecified organism (principal); K80.00 Calculus of gallbladder with acute cholecystitis without obstruction; K82.A2 Perforation of gallbladder in cholecystitis; E11.65 Type 2 diabetes mellitus with hyperglycemia; I10 Essential (primary) hypertension; K76.0 Fatty (change of) liver, not elsewhere classified; N36.8 Other specified disorders of urethra; K82.A1 Gangrene of gallbladder in cholecystitis; E78.00 Pure hypercholesterolemia, unspecified; K59.00 Constipation, unspecified
CPT/HCPCS: 36415; 71045; 74177; 74183; 80048; 80053; 80076; 81001; 82550; 82948; 83690; 83735; 84100; 84145; 84484; 85025; 85027; 87040; 87070; 87076; 87086; 88304; 93005; 96361; 96365; 96366; 96375; 99285; A4450; G0378; J1171; J1815; J1885; J2250; J2371; J2405; J2543; J2704; J2710; J2795; J3010; J3480; J3490; J7030; Q9967; A4215; A4216; A4222; A4223; A4600; A4930; A6206; A9575; C1769; J0665; J0690